=== PATIENT | female | born 1990 | race Caucasian/White ===

== ENCOUNTER 2020-03-05 23:39 | Emergency (ER) | payer MEDICAID, SELFPAY ==
[2020-03-05 23:40] VITALS: BP 133/85; RESP 18; O2SAT 97
--- NOTE | 2020-03-05 23:52 | PC.NURSE ---
PATIENT STATES SHE WAS LYING IN BED WHEN HER CHEST STARTED HURTING, PATIENT STATES THAT SHE HAD PAIN IN HER CHEST YESTERDAY AT WORK. PATIENT STATES SHE IS FEELING ANXIOUS. PATIENT IS NOT COMPLIANT WITH MONITORS BEING PLACED.
--- NOTE | 2020-03-05 23:53 | XRR_ITS ---
PROCEDURE INFORMATION: Exam: XR Chest, 1 View Exam date and time: 03/06/2020 12:18 AM Age: 29 years old Clinical indication: Chest pain; Type not specified; Additional info: Cp TECHNIQUE: Imaging protocol: XR of the chest Views: 1 view. COMPARISON: No relevant prior studies available. FINDINGS: Lungs: Unremarkable. No consolidation. Pleural space: Unremarkable. No pleural effusion. No pneumothorax. Heart/Mediastinum: Unremarkable. No cardiomegaly. Bones/joints: Unremarkable. XR/XR chest 1V portable [id number] IMPRESSION: No acute findings.
--- NOTE | 2020-03-05 23:53 | ECG_ITS ---
Measurements Intervals [place] Rate: 112 P: 57 LA: 141 QRS: 76 QRSD: 90 T: 32 QT: 339 QTc: 464 SINUS TACHYCARDIA ABNORMAL RHYTHM ECG No previous ECG available for comparison Electronically Signed On 03-06-2020 19:04:36 CDT by Jaquelin Cross M.D. [email or web address]
[2020-03-05 23:54] VITALS: BP 140/89; PULSE 106; RESP 20; O2SAT 97
--- NOTE | 2020-03-06 00:06 | ED_ITS ---
HPI - Chest Pain General: Chief Complaint: Chest Pain Stated Complaint: Chest pain Time Seen by Provider: 03/05/20 23:50 Source: patient Mode of arrival: ambulatory Limitations: no limitations History of Present Illness: HPI narrative: 29-year-old female who states she has had chest pain along with feeling like she cannot get a breath and over the last 2 hours. Patient here is very anxious and is tachypneic and tachycardic. Patient denies any worsening or improving factors. She denies any previous symptoms like this. She has had no recent trips. She denies any worsening or improving factors. Is very difficult to get a full history as she is very anxious at this time. pt admitted to methamphetamine use today to person with her. Associated symptoms: Deny abdominal pain, dyspnea, fever(s), nausea or vomiting Review of Systems Const: Denies: fever(s), chills, body aches or change in appetite Eyes: Denies: blurry vision or eye discomfort ENMT: Denies: throat pain or dental pain Card: Reports: chest pain Resp: Denies: dyspnea GI: Denies: abdominal pain, nausea, vomiting or diarrhea : Denies: dysuria Musc: Denies: neck pain or back pain Skin/Breast: Denies: rash Neuro: Denies: headache(s) Psych: Reports: anxiety Skyler/Lymph: Denies: easy bruising All/Imm: Denies: urticaria PFSH ED PFSH: Social History Smoking and tobacco status: current every day smoker Physical Exam Const: COMMON NORMALS: no acute distress, patient oriented x3 and healthy appearing GENERAL APPEARANCE: anxious HENMT: COMMON NORMALS: normocephalic and atraumatic HEAD & SCALP: normocephalic and atraumatic Eye: COMMON NORMALS: Equal, round and reactive pupils present and EOMs intact bilaterally PUPIL: Yes Equal, round and reactive pupils present Neck/C-Spine: COMMON NORMALS: full ROM and supple Chest: COMMONS NORMALS: normal inspection of the chest and normal palpation of entire chest wall Resp: COMMON NORMALS: normal respiratory effort, No retractions, No use of accessory muscles and clear to auscultation bilaterally AUSCULTATION: clear to auscultation bilaterally Cardio: COMMON NORMALS: regular rhythm and No murmurs present (Cardio) RATE: tachycardic RHYTHM: regular rhythm GI: COMMON NORMALS: Normal to inspection, nondistended, normoactive bowel sounds present, Soft to palpation, non-tender and no masses PALPATION: Yes Soft to palpation Extremity: COMMON NORMALS: normal to inspection and full ROM Neuro: COMMON NORMALS: patient oriented x3, moves all extremities and no focal motor deficits Psych: COMMON NORMALS: mental status grossly normal, Normal thought process present and cooperative THOUGHT PROCESS: Normal thought process present Skin: COMMON NORMALS: no rashes or lesions noted and no wounds GENERAL SKIN EXAM: no rashes or lesions noted Course Vital Signs: Vital signs: Vital Signs Pulse Rate 108 H 03/06/20 01:01 Respiratory Rate 18 03/06/20 01:01 Blood Pressure 140/89 03/05/20 23:54 Pulse Oximetry 98 03/06/20 01:01 MDM - Chest Pain MDM Narrative: Medical decision making narrative: Patient presents with chest pain along with anxiety likely from methamphetamine abuse. Patient's lab work including troponin and d-dimer all negative. Patient refused any IV here and refused Ativan. Patient refused staying for 2-hour troponin. She is not homicidal or suicidal and is not acutely psychotic and can make her own medical decisions. Patient discharged and is to follow-up with primary care doctor in 2 to 4 days and return if worsening. Lab Data: Labs: Lab Results 03/06/20 03/06/20 03/06/20 Range/Units 00:28 00:28 00:28 WBC 8.5 (4.0-10.0) 10^3/ uL RBC 4.46 (4.1-5.3) 10^6/u L Hgb 14.0 (11.5-15.3) g/dL Hct 42.4 (37.0-47.0) % MCV 95.1 (81-99) fL MCH 31.4 (28.0-34.0) pg MCHC 33.0 (30.0-36.0) g/dL RDW 12.8 (12.1-15.1) % Plt Count 182 (130-400) 10^3/c mm MPV 10.6 H (7.4-10.4) fL Neut % (Auto) 44.0 % Lymph % (Auto) 46.6 % [place] % (Auto) 6.4 % Eos % (Auto) 2.6 % Baso % (Auto) 0.2 % Neut # (Auto) 3.7 (1.8-7.7) 10^3/u L Lymph # (Auto) 4.0 (0.8-4.8) 10^3/u L [place] # (Auto) 0.5 (0.2-0.9) 10^3/u L Eos # (Auto) 0.2 (0.0-0.8) 10^3/u L Baso # (Auto) 0.0 (0.0-0.1) 10^3/u L Nucleated RBC % (a uto) 0 % Nucleated RBCs # 0.0 /100WBC D-Dimer <= 0.27 (0-0.59) ug/mIFE U Sodium (136-145) mmol/L Potassium (3.5-5.1) mmol/L Chloride (98-107) mmol/L Carbon Dioxide (22-29) mmol/L Anion Gap (5-19) BUN (6-20) mg/dL Creatinine (0.5-0.9) mg/dL GFR Calculation (90-130) mL/min Glucose (65-115) mg/dL Calculated Osmolal ity (285-295) mOsm/k g Calcium (8.5-10.5) mg/dL Total Bilirubin (0.15-1.2) mg/dL AST (0-32) U/L ALT (0-33) U/L Alkaline Phosphata se (35-105) IU/L Troponin T Baselin e (0-10) ng/L Total Protein (6.6-8.7) g/dL Albumin (3.5-5.2) g/dL Globulin (1.3-4.6) g/dL Urine HCG, Qual Negative (Negative) 03/06/20 03/06/20 Range/Units 00:28 00:28 WBC (4.0-10.0) 10^3/ uL RBC (4.1-5.3) 10^6/u L Hgb (11.5-15.3) g/dL Hct (37.0-47.0) % MCV (81-99) fL MCH (28.0-34.0) pg MCHC (30.0-36.0) g/dL RDW (12.1-15.1) % Plt Count (130-400) 10^3/c mm MPV (7.4-10.4) fL Neut % (Auto) % Lymph % (Auto) % [place] % (Auto) % Eos % (Auto) % Baso % (Auto) % Neut # (Auto) (1.8-7.7) 10^3/u L Lymph # (Auto) (0.8-4.8) 10^3/u L [place] # (Auto) (0.2-0.9) 10^3/u L Eos # (Auto) (0.0-0.8) 10^3/u L Baso # (Auto) (0.0-0.1) 10^3/u L Nucleated RBC % (a uto) % Nucleated RBCs # /100WBC D-Dimer (0-0.59) ug/mIFE U Sodium 140 (136-145) mmol/L Potassium 3.6 (3.5-5.1) mmol/L Chloride 105 (98-107) mmol/L Carbon Dioxide 22 (22-29) mmol/L Anion Gap 16.6 (5-19) BUN 9 (6-20) mg/dL Creatinine 0.7 (0.5-0.9) mg/dL GFR Calculation 97.6 (90-130) mL/min Glucose 103 (65-115) mg/dL Calculated Osmolal ity 286 (285-295) mOsm/k g Calcium 9.5 (8.5-10.5) mg/dL Total Bilirubin 0.2 (0.15-1.2) mg/dL AST 26 (0-32) U/L ALT 22 (0-33) U/L Alkaline Phosphata se 71 (35-105) IU/L Troponin T Baselin e 6 (0-10) ng/L Total Protein 7.2 (6.6-8.7) g/dL Albumin 4.2 (3.5-5.2) g/dL Globulin 3.0 (1.3-4.6) g/dL Urine HCG, Qual (Negative) EKG Data^: EKG 1: EKG interpretation date: 03/05/20 EKG interpretation time: 23:54 Interpretation: sinus tach hr [address] or t wave abnormalities qrs 90 qtc 405 Discharge Plan Discharge Patient Disposition: Home, Self-Care Clinical Impression: Anxious mood Chest pain Qualifiers: Chest pain type: unspecified Qualified Code(s): R07.9 - Chest pain, unspecified Condition: Stable Discharge Orders: Discharge Order (Routine); Ordered 03/06/20 Ordered By: Ajay Phelps Discharge Diet: Advance as tolerated Discharge Activity: Resume usual activity Patient Instructions: Anxiety (ED) Discharge Date/Time: 03/06/20 01:01 Coding Level of Care Code ED Dynamite Packing Machine Feeder for Brina Fwjason Exam Comprehensive
--- NOTE | 2020-03-06 00:09 | PC.NURSE ---
patient refused iv and medications from nurse, stating that she did not want anything in her . Patient stated that she felt that the ekg electrodes were full of poison .
[2020-03-06 00:35] LABS: Basophils % 0.2 %; Eosinophils # 0.2 10^3/uL (0.0-0.8); Eosinophils % 2.6 %; Hematocrit 42.4 % (37.0-47.0); Lymphocytes % 46.6 %; Mean Corpuscular Hemoglobin 31.4 pg (28.0-34.0); Mean Corpuscular Volume 95.1 fL (81-99); Mean Platelet Volume 10.6 fL (7.4-10.4); Monocytes # 0.5 10^3/uL (0.2-0.9); Monocytes % 6.4 %; Neutrophils # 3.7 10^3/uL (1.8-7.7); Nucleated Red Blood Cells % 0 %; Platelet Count 182 10^3/cmm (130-400); Red Blood Count 4.46 10^6/uL (4.1-5.3); Red Cell Distribution Width 12.8 % (12.1-15.1); White Blood Count 8.5 10^3/uL (4.0-10.0)
--- NOTE | 2020-03-06 00:38 | PC.NURSE ---
PATIENT REFUSED IV AND MEDICATIONS FROM NURSE, STATING THAT SHE DID NOT WANT ANYTHING IN HER . PATIENT STATED THAT SHE FELT THE THAT THE EKG ELECTRODES WERE FULL OF POISON .
[2020-03-06] MEDS: LORazepam 2 mg Tablet PO (00:42)
[2020-03-06 00:47] LABS: D Dimer <= 0.27 ug/mIFEU (0-0.59)
[2020-03-06 00:54] LABS: Alanine Aminotransferase 22 U/L (0-33); Albumin Level 4.2 g/dL (3.5-5.2); Alkaline Phosphatase 71 IU/L (35-105); Anion Gap 16.6 (5-19); Aspartate Amino Transferase 26 U/L (0-32); Blood Urea Nitrogen 9 mg/dL (6-20); Calcium 9.5 mg/dL (8.5-10.5); Carbon Dioxide 22 mmol/L (22-29); Chloride 105 mmol/L (98-107); Glomerular Filtration Rate 97.6 mL/min (90-130); Glucose 103 mg/dL (65-115); Osmolality Calculated 286 mOsm/kg (285-295); Potassium 3.6 mmol/L (3.5-5.1); Sodium 140 mmol/L (136-145); Total Bilirubin 0.2 mg/dL (0.15-1.2); Total Protein 7.2 g/dL (6.6-8.7); Troponin(5th) Baseline 6 ng/L (0-10)
[2020-03-06 01:01] VITALS: PULSE 108; RESP 18; O2SAT 98
--- NOTE | 2020-03-06 01:06 | PC.NURSE ---
WASTED 2MG ATIVAN PO AND WASTED 2MG ATIVAN IN SYRINGE WITH OTHER RN
== END 2020-03-06 01:01 | disposition home or self-care (01) ==
PROVIDERS: Emergency Provider Emergency Medicine
DX: R07.9 Chest pain, unspecified (principal); F41.9 Anxiety disorder, unspecified; F17.210 Nicotine dependence, cigarettes, uncomplicated
CPT/HCPCS: 12345; 71045; 80053; 81025; 84484; 85025; 85378; 93005; 99281; 99284

== ENCOUNTER 2022-03-23 14:41 | Inpatient (IN) | payer MEDICAID, SELFPAY ==
[2022-03-23 14:59] VITALS: BP 139/91; PULSE 76; RESP 16; TEMP 36.7; O2SAT 99
--- NOTE | 2022-03-23 15:06 | ED.C_ITS ---
HPI - Psych General: Chief Complaint: Psychiatric Symptoms Stated Complaint: SI Time Seen by Provider: 03/23/22 15:02 History of Present Illness: Patient is a 31-year-old female comes to the ED with SI. She has a history of depression and personality disorder. She has not been taking any of her medications for the past several months. She endorses increased thoughts of SI but denies having a plan. She is feeling more depressed over this past couple days and has low energy. She has been sleeping a lot. She also hears voices that tell her negative things about herself and ot her people. Endorses some alcohol and methamphetamine use. Last meth use was within the last week. Denies any HI or any other symptoms. Associated symptoms: Reports auditory hallucinations, depression and suicidal ideation; Deny homicidal ideation Review of Systems Const: Denies: fever(s), chills or fatigue Eyes: Denies: change in vision or eye discomfort ENMT: Denies: throat pain, odynophagia, nasal discharge or nasal congestion Card: Denies: chest pain, palpitations, edema, swelling of feet/ankles, dyspnea on exertion or orthopnea Resp: Denies: dyspnea, productive cough or non-productive cough GI: Denies: abdominal pain, nausea, vomiting, diarrhea, constipation or hematochezia : Denies: flank pain, dysuria or hematuria Musc: Denies: neck pain, back pain or extremity swelling Skin/Breast: Denies: rash or new lesions Neuro: Denies: headache(s), numbness in extremities or weakness in extremities Psych: Reports: depression, sleeping more, loss of interest, auditory halluc inations and suicidal ideation; Denies: homicidal ideation [facility] ED PFSH: Medical History No pertinent family history Surgical History No pertinent past surgical history Physical Exam Const: COMMON NORMALS: no acute distress, patient oriented x3 and alert GENERAL APPEARANCE: cooperative and comfortable HENMT: COMMON NORMALS: normocephalic HEAD & SCALP: normocephalic MOUTH: Normal oral and palatal mucosa present THROAT: posterior oropharynx normal and uvula midline Neck/C-Spine: COMMON NORMALS: supple GENERAL: Yes normal visual inspection Resp: COMMON NORMALS: normal respiratory effort, No retractions, No use of accessory muscles and clear to auscultation bilaterally AUSCULTATION: clear to auscultation bilaterally Cardio: COMMON NORMALS: regular rate, regular rhythm, S1 normal heart sound present, S2 normal heart sound present, No gallops present (Cardio), No clicks p resent (Cardio), No murmurs present (Cardio) and Peripheral pulses 2+ throughout RATE: regular rate RHYTHM: regular rhythm HEART SOUNDS: S1 normal heart sound present and S2 normal heart sound present PERIPHERAL PULSES: Peripheral pulses 2+ throughout GI: COMMON NORMALS: Normal to inspection, nondistended, normoactive bowel sounds present, Soft to palpation, non-tender and no masses PALPATION: Yes Soft to palpation : COMMON NORMALS: Yes no CVA tenderness BLADDER/KIDNEY EXAM: Yes no CVA tenderness Back/Pelvis: COMMON NORMALS: no CVA tenderness Neuro: COMMON NORMALS: patient oriented x3 and moves all extremities SENSORIUM/ORIENTATION: Yes alert Psych: COMMON NORMALS: mental status grossly normal, cooperative and speech normal ATTITUDE: Yes calm SPEECH: Yes normal speech MOOD & AFFECT: Yes sad and Yes tearful THOUGHT CONTENT: Yes Suicidality present Skin: GENERAL SKIN EXAM: dry skin Course Reevaluation(s): Reevaluation #1: I contacted Dr. Fuller and told him about patient case. He agreed to have patient admitted to the NPU. Vital Signs: Vital signs: Vital Signs Temperature 98.3 F 03/23/22 17:26 Pulse Rate 98 03/23/22 20:15 Respiratory Rate 16 03/23/22 20:15 Blood Pressure 135/92 03/23/22 20:15 Pulse Oximetry 96 03/23/22 20:15 [facility] - Psych Medical Decision Making Patient is a 31-year-old female comes to the ED with SI. Patient wants to get help. She admits to recent meth use within the last week. Prescreening labs performed patient did test positive for methamphetamine the rest the labs are unremarkable. I contacted Dr. Fuller and told him about patient case. He agreed patient to be admitted to the NPU. Dr. Mars was notified and he placed the admitting orders Lab Data I reviewed the patient's lab results. : 03/23/22 16:02 03/23/22 16:02 Laboratory Results WBC 10.0 10^3/uL (4.0-10.0) 03/23/22 16:02 RBC 4.82 10^6/uL (4.1-5.3) 03/23/22 16:02 Hgb 15.1 g/dL (11.5-15.3) 03/23/22 16:02 Hct 43.5 % (37.0-47.0) 03/23/22 16:02 MCV 90.2 fl (81-99) 03/23/22 16:02 MCH 31.3 pg (28.0-34.0) 03/23/22 16:02 MCHC 34.7 g/dL (30.0-36.0) 03/23/22 16:02 RDW 12.6 % (12.1-15.1) 03/23/22 16:02 Plt Count 218 10^3/cmm (130-400) 03/23/22 16:02 MPV 10.8 fL (7.4-10.4) H 03/23/22 16:02 Neut % (Auto) 59.7 % 03/23/22 16:02 Lymph % (Auto) 31.9 % 03/23/22 16:02 Kinney % (Auto) 6.9 % 03/23/22 16:02 Eos % (Auto) 0.7 % 03/23/22 16:02 Baso % (Auto) 0.2 % 03/23/22 16:02 Neut # (Auto) 5.98 10^3/uL (1.8-7.7) 03/23/22 16:02 Lymph # (Auto) 3.2 10^3/uL (0.8-4.8) 03/23/22 16:02 Kinney # (Auto) 0.7 10^3/uL (0.2-0.9) 03/23/22 16:02 Eos # (Auto) 0.1 10^3/uL (0.0-0.8) 03/23/22 16:02 Baso # (Auto) 0.0 10^3/uL (0.0-0.1) 03/23/22 16:02 Nucleated RBC % (auto) 0 % 03/23/22 16:02 Nucleated RBCs # 0.0 /100WBC 03/23/22 16:02 Sodium 140 mmol/L (136-145) 03/23/22 16:02 Potassium 3.8 mmol/L (3.5-5.1) 03/23/22 16:02 Chloride 102 mmol/L (98-107) 03/23/22 16:02 Carbon Dioxide 23 mmol/L (22-29) 03/23/22 16:02 Anion Gap 18.8 (5-19) 03/23/22 16:02 BUN 11 mg/dL (6-20) 03/23/22 16:02 Creatinine 0.6 mg/dL (0.5-0.9) 03/23/22 16:02 GFR Calculation 115.1 mL/min (90-130) 03/23/22 16:02 Glucose 84 mg/dL (65-115) 03/23/22 16:02 Calculated Osmolality 289 mOsm/kg (285-295) 03/23/22 16:02 Calcium 8.9 mg/dL (8.5-10.5) 03/23/22 16:02 Total Bilirubin 0.5 mg/dL (0.15-1.2) 03/23/22 16:02 AST 45 U/L (0-32) H 03/23/22 16:02 ALT 68 U/L (0-33) H 03/23/22 16:02 Alkaline Phosphatase 74 IU/L (35-105) 03/23/22 16:02 Total Protein 7.2 g/dL (6.6-8.7) 03/23/22 16:02 Albumin 4.2 g/dL (3.5-5.2) 03/23/22 16:02 Globulin 3.0 g/dL (1.3-4.6) 03/23/22 16:02 HCG, Qual Negative (Negative) 03/23/22 16:02 Urine Color Yellow (Yellow) 03/23/22 15:07 Urine Appearance Clear (CLEAR) 03/23/22 15:07 Urine pH 7 (5-7) 03/23/22 15:07 Ur Specific [place] 1.005 (1.005-1.030) 03/23/22 15:07 Urine Protein Neg (Negative) 03/23/22 15:07 Urine Glucose (UA) Norm (Normal) 03/23/22 15:07 Urine Ketones Negative (Negative) 03/23/22 15:07 Urine Blood 2+ (Negative) H 03/23/22 15:07 Urine Nitrate Negative (Negative) 03/23/22 15:07 Urine Bilirubin Neg (Negative) 03/23/22 15:07 Urine Urobilinogen Norm mg/dL (Negative) 03/23/22 15:07 Ur Leukocyte Esterase Negative (Negative) 03/23/22 15:07 Urine RBC 0-4 /hpf (0-2) H 03/23/22 15:07 Urine WBC 0-4 /hpf (0-5) H 03/23/22 15:07 Ur Squamous Epith Cells 0-4 /hpf (0-5) H 03/23/22 15:07 Amorphous Sediment Not Reportable 03/23/22 15:07 Urine Bacteria Trace /hpf (NONE) 03/23/22 15:07 Salicylates < 0.3 mg/dL (3-10) L 03/23/22 16:02 Urine Opiates Screen Negative ng/mL (Negative) 03/23/22 15:07 Acetaminophen < 5.0 ug/mL (10-30) L 03/23/22 16:02 Ur Barbiturates Screen Negative ng/mL (Negative) 03/23/22 15:07 Ur Phencyclidine Scrn Negative ng/mL (Negative) 03/23/22 15:07 Ur Amphetamines Screen Positive ng/mL (Negative) H 03/23/22 15:07 U Benzodiazepines Scrn Negative ng/mL (Negative) 03/23/22 15:07 Urine Cocaine Screen Negative ng/mL (Negative) 03/23/22 15:07 U Marijuana (THC) Screen Negative ng/mL (Negative) 03/23/22 15:07 Ethyl Alcohol < 10 mg/dL (0-10) 03/23/22 16:02 Discharge Plan Discharge Patient Disposition: Admitted As Inpatient Admit Provider: Yuri Fuller Clinical Impression: Suicidal ideation Condition: Stable Coding Level of Care Code ED Performance Architect for Chg Fwd Exam Comprehensive
[2022-03-23 15:56] LABS: Amphetamines Screen Urine Positive (Negative); Barbiturates Screen Urine Negative (Negative); Benzodiazepines Screen Urine Negative (Negative); Cocaine Screen Urine Negative (Negative); Opiate Screen Urine Negative (Negative); PCP Screen Urine Negative (Negative); THC Screen Urine Negative (Negative)
[2022-03-23 16:18] LABS: Add Urine Microscopic? YES; Bilirubin Urine Neg (Negative); Blood Urine 2+ (Negative); Glucose Urine UA Norm (Normal); Ketones Urine Negative (Negative); Leukocyte Esterase Urine Negative (Negative); Nitrate Urine Negative (Negative); Protein Urine Neg (Negative); Specific Gravity, Urine 1.005 (1.005-1.030); Urine Appearance Clear (CLEAR); Urine Color Yellow (Yellow); Urobilinogen Urine Norm (Negative); pH Urine 7 (5-7)
[2022-03-23 16:19] LABS: Add Urine Culture? No; RBC Urine 0-4 /hpf (0-2); Squamous Epithelial Cell Urine 0-4 /hpf (0-5); WBC Urine 0-4 /hpf (0-5)
[2022-03-23 16:20] LABS: Bacteria Urine TRACE /hpf
[2022-03-23] MEDS: LORazepam 1 mg Tablet PO (16:20)
[2022-03-23 16:26] LABS: Basophils % 0.2 %; Eosinophils # 0.1 10^3/uL (0.0-0.8); Eosinophils % 0.7 %; Hematocrit 43.5 % (37.0-47.0); Hemoglobin 15.1 g/dL (11.5-15.3); Lymphocytes # 3.2 10^3/uL (0.8-4.8); Lymphocytes % 31.9 %; Mean Corpuscular HGB Conc 34.7 g/dL (30.0-36.0); Mean Corpuscular Hemoglobin 31.3 pg (28.0-34.0); Mean Corpuscular Volume 90.2 fl (81-99); Mean Platelet Volume 10.8 fL (7.4-10.4); Monocytes # 0.7 10^3/uL (0.2-0.9); Monocytes % 6.9 %; Neutrophils # 5.98 10^3/uL (1.8-7.7); Neutrophils % 59.7 %; Nucleated Red Blood Cells % 0 %; Platelet Count 218 10^3/cmm (130-400); Red Blood Count 4.82 10^6/uL (4.1-5.3); Red Cell Distribution Width 12.6 % (12.1-15.1)
[2022-03-23 16:45] LABS: Alanine Aminotransferase 68 U/L (0-33); Albumin Level 4.2 g/dL (3.5-5.2); Alkaline Phosphatase 74 IU/L (35-105); Anion Gap 18.8 (5-19); Aspartate Amino Transferase 45 U/L (0-32); Blood Urea Nitrogen 11 mg/dL (6-20); Calcium 8.9 mg/dL (8.5-10.5); Carbon Dioxide 23 mmol/L (22-29); Chloride 102 mmol/L (98-107); Glomerular Filtration Rate 115.1 mL/min (90-130); Glucose 84 mg/dL (65-115); Osmolality Calculated 289 mOsm/kg (285-295); Potassium 3.8 mmol/L (3.5-5.1); Sodium 140 mmol/L (136-145); Total Bilirubin 0.5 mg/dL (0.15-1.2); Total Protein 7.2 g/dL (6.6-8.7)
[2022-03-23 16:46] LABS: Acetaminophen < 5.0 ug/mL (10-30); Alcohol Level < 10 mg/dL (0-10); Salicylate < 0.3 mg/dL (3-10)
[2022-03-23 16:59] LABS: HCG, Serum Qual Negative (Negative)
[2022-03-23 17:26] VITALS: BP 127/90; PULSE 92; RESP 18; TEMP 36.8; O2SAT 95
[2022-03-23 20:15] VITALS: BP 135/92; PULSE 98; RESP 16; O2SAT 96
[2022-03-23] MEDS: hyDROXYzine 25 mg Capsule 50 MG PO (20:34)
[2022-03-23] MEDS: OLANZapine 5 mg ODT PO (20:34)
--- NOTE | 2022-03-23 20:35 | PC.NURSE ---
Patient C/O A/H, V/H and increasing paranoia. Zyprexa Zydus 5mg PO given.
[2022-03-24 06:00] VITALS: BP 112/72; PULSE 64; RESP 15; O2SAT 97
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
[2022-03-24] MEDS: acetaminophen 325 mg Tablet 650 MG PO (11:38)
[2022-03-24 14:00] VITALS: BP 100/67; PULSE 74; RESP 16; TEMP 36.7; O2SAT 97
[2022-03-24] MEDS: OLANZapine 5 mg ODT PO (15:23)
[2022-03-24 20:12] VITALS: BP 132/80; PULSE 82; RESP 16; TEMP 36.6; O2SAT 97
[2022-03-25 06:00] VITALS: BP 111/61; PULSE 76; RESP 16; TEMP 36.4; O2SAT 97
--- NOTE | 2022-03-25 07:36 | P.NPUPN_ITS ---
Subjective NPU Subjective: Patient presents today continuing to be somewhat frustrated in her withdrawal. Still working with resources to figure out what her medications were because she wants to stick with things that worked. Otherwise she mostly isolated and saying to her self still. We discussed working with the treatment team in the morning to figure out what her next plan is. Mental Status Exam MSE Comments: This is an obese white female in hospital scrubs with limited grooming and eye contact. No abnormal movements except fro psychomotor retardation. Cooperative with exam in mild distress. Speech was slightly decreased rate and volume. Mood described as okay, affect is irritable. Thought process, organized. Thought content: patient denies any suicidal or homicidal ideation, reports a decrease in paranoia and no delusions noted, reports auditory hallucinations but denies visual hallucinations. Attention and concentration are intact and memory appeared reliable but none were formally tested. She is alert and oriented three times. Insight and judgment are fair. Impulse control is fair versus limited. Vitals/I&O/Wt Last Vital Signs Temp 97.6 F 03/25/22 06:00 Pulse 76 03/25/22 06:00 Resp 16 03/25/22 06:00 BP 111/61 03/25/22 06:00 Pulse Ox 97 03/25/22 06:00 Weight last 48 hrs Weight 104.054 kg Weight 95.254 kg Data NPU : 03/23/22 16:02 03/23/22 16:02 A&P Assessment and plan (1) Cluster B personality disorder in adult: Status: Acute (2) Major depressive disorder, recurrent: Status: Acute (3) Methamphetamine use disorder, severe: Status: Acute (4) Suicidal ideation: Status: Acute Plan This is a 31 year old white female with a history of trauma and genetic loading for mental health, addiction and lethality issues who presents with recent mental health challenges due to life stressors and having run out of her medications, open to restarting her medications. Restart current medications once collateral information has been obtained for the pharmacy. Encourage individual, group and milieu therapy Continue q-15 minute check for safety Recommend sober living treatment at the highest level of care to which the patient is willing to commit. Involuntary Hold Information 96 Hour Hold: 96 Hour Involuntary Admission: No Attestations NPU Medical Necessity Statement*: Inpatient hospitalization is medically necessary and the clinically appropriate intervention at this time. We will monitor medications and make changes as indicated. Likely length of stay is 2-4 days. 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
[2022-03-25 13:53] VITALS: BP 111/74; PULSE 84; RESP 17; TEMP 36.6; O2SAT 98
[2022-03-25] MEDS: OLANZapine 5 mg ODT PO ×2 (15:56→21:58)
[2022-03-25] MEDS: trazodone 50 mg Tablet PO (21:58)
[2022-03-25 21:59] VITALS: BP 113/79; PULSE 80; RESP 19; TEMP 36.7; O2SAT 97
[2022-03-25] MEDS: nicotine 2 mg Gum BUCCAL (21:59)
[2022-03-26 06:00] VITALS: BP 117/75; PULSE 18; RESP 117; O2SAT 97
[2022-03-26 14:00] VITALS: BP 116/79; PULSE 96; RESP 20; TEMP 36.7; O2SAT 96
[2022-03-26] MEDS: acetaminophen 325 mg Tablet 650 MG PO (15:41)
[2022-03-26] MEDS: OLANZapine 5 mg ODT PO ×2 (15:41→20:48)
[2022-03-26] MEDS: nicotine 2 mg Gum BUCCAL (16:04)
--- NOTE | 2022-03-26 18:30 | W.PM.NPUPNS ---
Subjective NPU Subjective: Patient presents today reporting that she is doing okay. She appears a little less irritable but not much. She was advised when it was identified that she had not been to [facility] for at least 8 months and the things that she got had nothing to do with her mental health. She still is resistant to just trying something that is being recommended and nursing has been trying to get information from [facility] from her reportedly recent stay. She reports that she is eating okay and sleeping a little better. Mental Status Exam MSE Comments: This is an obese white female in hospital scrubs with limited grooming and eye contact. No abnormal movements except fro psychomotor retardation. Cooperative with exam in mild distress. Speech was slightly decreased rate and volume. Mood described as okay, affect is less irritable. Thought process, organized. Thought content: patient denies any suicidal or homicidal ideation, reports a decrease in paranoia and no delusions noted, reports auditory hallucinations but denies visual hallucinations. Attention and concentration are intact and memory appeared reliable but none were formally tested. She is alert and oriented three times. Insight and judgment are fair. Impulse control is fair versus limited. Vitals/I&O/Wt Last Vital Signs Temp 98.2 F 03/26/22 21:30 Pulse 86 03/26/22 21:30 Resp 17 03/26/22 21:30 BP 103/71 03/26/22 21:30 Pulse Ox 97 03/26/22 21:30 Weight last 48 hrs Weight 104.054 kg Data NPU : 03/23/22 16:02 03/23/22 16:02 A&P Assessment and plan (1) Cluster B personality disorder in adult: Status: Acute (2) Major depressive disorder, recurrent: Status: Acute (3) Methamphetamine use disorder, severe: Status: Acute (4) Suicidal ideation: Status: Acute Plan This is a 31 year old white female with a history of trauma and genetic loading for mental health, addiction and lethality issues who presents with recent mental health challenges due to life stressors and having run out of her medications, open to restarting her medications. Restart current medications once collateral information has been obtained for the pharmacy. Encourage individual, group and milieu therapy Continue q-15 minute check for safety Recommend sober living treatment at the highest level of care to which the patient is willing to commit. Involuntary Hold Information 96 Hour Hold: 96 Hour Involuntary Admission: No Attestations NPU Medical Necessity Statement*: Inpatient hospitalization is medically necessary and the clinically appropriate intervention at this time. We will monitor medications and make changes as indicated.? Likely length of stay is 1-3 days. 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
[2022-03-26] MEDS: trazodone 50 mg Tablet PO (20:48)
[2022-03-26 21:30] VITALS: BP 103/71; PULSE 86; RESP 17; TEMP 36.8; O2SAT 97
[2022-03-27 06:00] VITALS: BP 91/63; PULSE 58; RESP 17; TEMP 36.6; O2SAT 96
[2022-03-27 14:00] VITALS: BP 112/77; PULSE 93; RESP 17; TEMP 36.6; O2SAT 96
[2022-03-27] MEDS: acetaminophen 325 mg Tablet 650 MG PO (14:17)
[2022-03-27] MEDS: nicotine 2 mg Gum BUCCAL ×3 (17:21→21:03)
--- NOTE | 2022-03-27 17:52 | W.PM.NPUPNS ---
Subjective NPU Subjective: Patient presents today continuing to report that she is depressed and that not much is changed. After an extensive review of medication as best we could understand we discussed the risk-benefit and alternatives of initiating Abilify 10 mg p.o. daily and Zoloft 50 mg p.o. every morning and she understood agreed proceed as is documented in his note. She is working with the social work team to determine possible options. She also was asking about being connected with a Suboxone program possibly given her significant difficulty with cravings for opiates as well as discussing the possibility of being discharged to a senior living given her limited resources. Mental Status Exam MSE Comments: This is an obese white female in hospital scrubs with limited grooming and eye contact. No abnormal movements except fro psychomotor retardation. Cooperative with exam in mild distress. Speech was slightly decreased rate and volume. Mood described as still depressed, affect is slightly less irritable. Thought process, organized. Thought content: patient denies any suicidal or homicidal ideation, reports a decrease in paranoia and no delusions noted, reports auditory hallucinations but denies visual hallucinations. Attention and concentration are intact and memory appeared reliable but none were formally tested. She is alert and oriented three times. Insight and judgment are fair. Impulse control is fair versus limited. Vitals/I&O/Wt Last Vital Signs Temp 98.5 F 03/27/22 20:24 Pulse 89 03/27/22 20:24 Resp 16 03/27/22 20:24 BP 128/86 03/27/22 20:24 Pulse Ox 97 03/27/22 20:24 Data NPU : 03/23/22 16:02 03/23/22 16:02 A&P Assessment and plan (1) Cluster B personality disorder in adult: Status: Acute (2) Major depressive disorder, recurrent: Status: Acute (3) Methamphetamine use disorder, severe: Status: Acute (4) Suicidal ideation: Status: Acute Plan This is a 31 year old white female with a history of trauma and genetic loading for mental health, addiction and lethality issues who presents with recent mental health challenges due to life stressors and having run out of her medications, open to restarting her medications. 1. Start Zoloft 50 mg p.o. every morning and Abilify 10 mg p.o. every morning. 2. Encourage individual, group and milieu therapy 3. Continue q-15 minute check for safety 4. Recommend sober living treatment at the highest level of care to which the patient is willing to commit. Involuntary Hold Information 96 Hour Hold: 96 Hour Involuntary Admission: No Attestations NPU Medical Necessity Statement*: Inpatient hospitalization is medically necessary and the clinically appropriate intervention at this time. We will monitor medications and make changes as indicated.? Likely length of stay is 1-3 days. 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
[2022-03-27] MEDS: hyDROXYzine 25 mg Capsule 50 MG PO (19:01)
--- NOTE | 2022-03-27 19:01 | PC.NURSE ---
PRN VISTARIL 50 MG GIVEN PO PER PT C/O STATED ANXIETY
[2022-03-27] MEDS: sertraline 50 mg Tablet PO (19:36)
[2022-03-27] MEDS: ARIPiprazole 10 mg Tablet PO (19:36)
[2022-03-27 20:24] VITALS: BP 128/86; PULSE 89; RESP 16; TEMP 36.9; O2SAT 97
[2022-03-27] MEDS: OLANZapine 5 mg ODT PO (21:02)
[2022-03-27] MEDS: trazodone 50 mg Tablet PO (21:03)
[2022-03-28 06:00] VITALS: BP 108/75; PULSE 75; RESP 16; TEMP 36.6; O2SAT 95
--- NOTE | 2022-03-28 08:43 | PC.NURSE ---
IN ROOM RESTING, APPEARS DISHOVELED WITH FLAT AFFECT. HESITANT TO PARTICIPATE WITH ASSESSMENT. PT IS GUARDED AND VOICES INCREASED DEPRESSION. DENIES PAIN. DENIES SI/HI9 AND VH AT THIS TIME. DOES ENDORSE HEARING VOICES PT STATES THEY TELL HER NEGATIVE THINGS ABOUT THE PEOPLE AROUND ME. STATES, THEY DON'T TELL ME TO HURT MYSELF SO DON'T WORRY ABOUT IT. PT STATES SHE DID NOT SLEEP WELL AND APPEARS ANXIOUS AT TIMES. DECLINES PRN MEDICATIONS, STATES, I WAS STARTED ON SOMETHING YESTERDAY, I WILL JUST TAKE THAT. PT ROLLED OVER AND WENT BACK TO RESTING IN BED WITH EYES CLOSED. SUPPORT VOICED.
[2022-03-28] MEDS: ARIPiprazole 10 mg Tablet PO (09:34)
[2022-03-28] MEDS: sertraline 50 mg Tablet PO (09:34)
[2022-03-28 14:00] VITALS: BP 116/61; PULSE 71; RESP 16; TEMP 36.5; O2SAT 96
--- NOTE | 2022-03-28 17:13 | W.PM.NPUPNS ---
Subjective NPU Subjective: Patient presents today reporting that she is tolerating the Abilify and Zoloft at this point. She is somewhat concerned about what the next step in this process is as she feels very desirous to move things forward. And have her recovery be successful. She is working with the treatment team on possible aftercare opportunities. He reports he is eating fine and sleeping a little better. Mental Status Exam MSE Comments: This is an obese white female in hospital scrubs with limited grooming and eye contact. No abnormal movements except fro psychomotor retardation. Cooperative with exam in mild distress. Speech was slightly decreased rate and volume. Mood described as still depressed, affect is slightly less irritable. Thought process, organized. Thought content: patient denies any suicidal or homicidal ideation, reports a decrease in paranoia and no delusions noted, reports auditory hallucinations but denies visual hallucinations. Attention and concentration are intact and memory appeared reliable but none were formally tested. She is alert and oriented three times. Insight and judgment are fair. Impulse control is fair versus limited. Vitals/I&O/Wt Last Vital Signs Temp 97.7 F 03/28/22 14:00 Pulse 71 03/28/22 14:00 Resp 16 03/28/22 14:00 BP 116/61 03/28/22 14:00 Pulse Ox 96 03/28/22 14:00 Data NPU : 03/23/22 16:02 03/23/22 16:02 A&P Assessment and plan (1) Cluster B personality disorder in adult: Status: Acute (2) Major depressive disorder, recurrent: Status: Acute (3) Methamphetamine use disorder, severe: Status: Acute (4) Suicidal ideation: Status: Acute Plan This is a 31 year old white female with a history of trauma and genetic loading for mental health, addiction and lethality issues who presents with recent mental health challenges due to life stressors and having run out of her medications, open to restarting her medications. 1.? Started Zoloft 50 mg p.o. every morning and Abilify 10 mg p.o. every morning. 2.? Encourage individual, group and milieu therapy 3.? Continue q-15 minute check for safety 4.? Recommend sober living treatment at the highest level of care to which the patient is willing to commit. Involuntary Hold Information 96 Hour Hold: 96 Hour Involuntary Admission: No Attestations NPU Medical Necessity Statement*: Inpatient hospitalization is medically necessary and the clinically appropriate intervention at this time. We will monitor medications and make changes as indicated.? Likely length of stay is 1-3 days. 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
[2022-03-28] MEDS: nicotine 2 mg Gum BUCCAL (19:55)
[2022-03-28 20:06] VITALS: BP 122/83; PULSE 73; RESP 17; TEMP 36.7; O2SAT 95
[2022-03-28] MEDS: hyDROXYzine 25 mg Capsule 50 MG PO (20:20)
[2022-03-28] MEDS: trazodone 50 mg Tablet PO (20:20)
--- NOTE | 2022-03-28 21:49 | PC.NURSE ---
PRN PT REQUESTED MEDICATION TO HELP WITH ANXIETY AND TO HELP HER SLEEP. TRAZADONE AND HYDROXYZINE WERE GIVEN.
[2022-03-29 06:00] VITALS: PULSE 82; RESP 18; TEMP 36.8; O2SAT 98
[2022-03-29] MEDS: ARIPiprazole 10 mg Tablet PO (08:41)
[2022-03-29] MEDS: nicotine 2 mg Gum BUCCAL (08:41)
[2022-03-29] MEDS: sertraline 50 mg Tablet PO (08:42)
--- NOTE | 2022-03-29 08:58 | PC.NURSE ---
PT CONTINUES TO REST IN BED, TEARFUL AND SAD. DENIES SI/HI AND VH AT THIS TIME. DOES ENDORSE HEARING VOICES THAT ARE NEGATIVE IN NATURE, TELLING PT NEGATIVE THINGS ABOUT OTHERS. WAS CONTRACTED FOR SAFETY AND STATES SHE WILL NOTIFY STAFF IF THOUGHTS WORSEN. REPORTS SHE DID NOT SLEEP WELL LAST NIGHT. PT DID SLEEP MOST OF THE DYA YESTERDAY. SUPPORT VOICED.
[2022-03-29] MEDS: acetaminophen 325 mg Tablet 650 MG PO (13:49)
[2022-03-29 14:00] VITALS: BP 110/73; PULSE 89; RESP 16; TEMP 36.1; O2SAT 97
--- NOTE | 2022-03-29 15:13 | W.PM.NPUPNS ---
Subjective NPU Subjective: Patient is today reporting doing a little better. She can the medication seems to be taking the edge off. She is working with the social work team on options at this point it appears that [facility] going [facility] bed for her tomorrow. She reports that if that is the case she feels she may be ready to go there and possibly go to [facility] and start working on her recovery. Mental Status Exam MSE Comments: This is an obese white female in hospital scrubs with improving grooming and eye contact. No abnormal movements except for mild psychomotor retardation. Cooperative with exam in no acute distress. Speech was slightly decreased rate and volume. Mood described as still a little better, affect is less irritable. Thought process, organized. Thought content: patient denies any suicidal or homicidal ideation, reports a decrease in paranoia and no delusions noted, reports auditory hallucinations but denies visual hallucinations. Attention and concentration are intact and memory appeared reliable but none were formally tested. She is alert and oriented three times. Insight and judgment are fair. Impulse control is improving. Vitals/I&O/Wt Last Vital Signs Temp 97.0 F L 03/29/22 14:00 Pulse 89 03/29/22 14:00 Resp 16 03/29/22 14:00 BP 110/73 03/29/22 14:00 Pulse Ox 97 03/29/22 14:00 Data NPU : 03/23/22 16:02 03/23/22 16:02 A&P Assessment and plan (1) Cluster B personality disorder in adult: Status: Acute (2) Major depressive disorder, recurrent: Status: Acute (3) Methamphetamine use disorder, severe: Status: Acute (4) Suicidal ideation: Status: Acute Plan This is a 31 year old white female with a history of trauma and genetic loading for mental health, addiction and lethality issues who presents with recent mental health challenges due to life stressors and having run out of her medications, open to restarting her medications. 1.? Started Zoloft 50 mg p.o. every morning and Abilify 10 mg p.o. every morning. 2.? Encourage individual, group and milieu therapy 3.? Continue q-15 minute check for safety 4.? Recommend sober living treatment at the highest level of care to which the patient is willing to commit. 5. Possible discharge tomorrow. Involuntary Hold Information 96 Hour Hold: 96 Hour Involuntary Admission: No Attestations NPU Medical Necessity Statement*: Inpatient hospitalization is medically necessary and the clinically appropriate intervention at this time. We will monitor medications and make changes as indicated.? Likely length of stay is 1-2 days. Coding Level of Care Code Acute Animal Hospital Clerk for [facility] Fwd Diagnoses Cluster B personality disorder in adult F60.9 Major depressive disorder, recurrent F33.9 Methamphetamine use disorder, severe F15.20 Suicidal ideation R45.855
[2022-03-29] MEDS: nicotine 21 mg Patch 1 PATCH TRANSDERMA (16:14)
[2022-03-29 20:18] VITALS: BP 131/85; PULSE 87; RESP 20; TEMP 36.6; O2SAT 96
[2022-03-29] MEDS: trazodone 50 mg Tablet PO (20:22)
[2022-03-29] MEDS: hyDROXYzine 25 mg Capsule 50 MG PO (20:22)
--- NOTE | 2022-03-29 20:55 | PC.NURSE ---
PRN PT REQUESTED MEDICATION TO HELP HER SLEEP AND FOR ANXIETY/AUDITORY HALLUCINATIONS. PT WAS GIVEN VISTERIL AND TRAZADONE. PT IS UP IN THE DAY ROOM.
[2022-03-29] MEDS: OLANZapine 5 mg ODT PO (22:23)
--- NOTE | 2022-03-29 22:23 | PC.NURSE ---
PRN PT RETURNED TO NURSES STATION WITH COMPLAINTS OF AH AND ANXIETY. OLANZAPINE WAS GIVEN. PT NOW UP IN THE DAY ROOM
[2022-03-30 06:00] VITALS: BP 99/69; PULSE 78; RESP 20; TEMP 36.6; O2SAT 96
[2022-03-30] MEDS: haloperidol 5 mg Tablet PO ×2 (08:26→20:07)
[2022-03-30] MEDS: sertraline 50 mg Tablet PO (08:26)
[2022-03-30] MEDS: ARIPiprazole 10 mg Tablet PO (08:26)
--- NOTE | 2022-03-30 08:58 | PC.NURSE ---
IN ROOM PACING, ANXIETY OBSERVED. PT DENIES PAIN. PT DENIES SI/HI AND VH AT THIS TIME. ENDORSES AUDITORY HALLUCINATIONS THAT ARE 'TELLING ME BAD THINGS THEN POSITIVE THINGS. SOMETIMES I KOW THE PEOPLE SOMETIMES I DON'T. NOTIFIED MED NURSE TO GIVE AM MEDS AND HALDOL FOR VOICES. EDUCATED PT THAT IF VOICES GET WORSE TO LET STAFF KNOW SO FURTHE INTERVENTIONS CAN BE GIVEN. SUPPORT VOICED.
--- NOTE | 2022-03-30 12:34 | W.PM.NPUPNS ---
Subjective NPU Subjective: Patient presents today reporting that she is having a very rough day. She reports that voices were worse this morning and last night. We discussed the risk-benefit and alternatives of increasing Zoloft to 100 mg p.o. every morning and Abilify to 15 mg p.o. every morning and she understood agreed proceed as is documented in this note. We discussed the limitations for discharge over this weekend and the change manager to Dr. Ott. Mental Status Exam MSE Comments: This is an obese white female in hospital scrubs with improving grooming and eye contact. No abnormal movements except for mild psychomotor retardation. Cooperative with exam in no acute distress. Speech was slightly decreased rate and volume. Mood described as feeling overwhelmed, affect is congruent. Thought process, organized. Thought content: patient denies any suicidal or homicidal ideation, reports continued paranoia and no delusions noted, reports auditory hallucinations but denies visual hallucinations. Attention and concentration are intact and memory appeared reliable but none were formally tested. She is alert and oriented three times. Insight and judgment are fair. Impulse control is improving. Vitals/I&O/Wt Last Vital Signs Temp 98 F 03/30/22 06:00 Pulse 78 03/30/22 06:00 Resp 20 H 03/30/22 06:00 BP 99/69 03/30/22 06:00 Pulse Ox 96 03/30/22 06:00 Data NPU : 03/23/22 16:02 03/23/22 16:02 A&P Assessment and plan (1) Suicidal ideation: Status: Acute (2) Methamphetamine use disorder, severe: Status: Acute (3) Major depressive disorder, recurrent: Status: Acute (4) Cluster B personality disorder in adult: Status: Acute Plan This is a 31 year old white female with a history of trauma and genetic loading for mental health, addiction and lethality issues who presents with recent mental health challenges due to life stressors and having run out of her medications, open to restarting her medications. 1.? Continue current medication except increase Zoloft to 100 mg p.o. every morning and Abilify to 15 mg p.o. every morning. 2.? Encourage individual, group and milieu therapy 3.? Continue q-15 minute check for safety 4.? Recommend sober living treatment at the highest level of care to which the patient is willing to commit. 5.? Plan for discharge Saturday. 6. Evaluate for possible malingering if there is resistant to discharge at the beginning of the week. Involuntary Hold Information 96 Hour Hold: 96 Hour Involuntary Admission: No Attestations NPU Medical Necessity Statement*: Inpatient hospitalization is medically necessary and the clinically appropriate intervention at this time. We will monitor medications and make changes as indicated.? Likely length of stay is 2-4 days. 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
[2022-03-30 13:42] VITALS: BP 105/72; PULSE 92; RESP 15; TEMP 36.9; O2SAT 95
[2022-03-30] MEDS: OLANZapine 5 mg ODT PO (18:46)
--- NOTE | 2022-03-30 18:49 | PC.NURSE ---
PRN MEDICATION PT CONTINUES TO C/O VOICES AND ANXIETY. ZYDIS 5 MG GIVEN ORDERED.
[2022-03-30 19:49] VITALS: BP 110/72; PULSE 78; RESP 18; TEMP 36.6; O2SAT 95
[2022-03-30] MEDS: trazodone 50 mg Tablet PO (20:07)
[2022-03-31 06:00] VITALS: BP 98/69; PULSE 75; RESP 17; TEMP 36.6; O2SAT 97
--- NOTE | 2022-03-31 08:16 | W.PM.NPUPNS ---
Subjective NPU Subjective: Patient presents today reporting that she is doing okay. She is tolerating the increases in the medication without incident. We discussed hoping that she would have steady improvement over the weekend and that [facility] has a bed available on Saturday when they are back in business. We discussed the fact that Dr. Ott would start managing her care and that I will be back with she should be long discharged by then. She endorsed that she is eating fine and sleeping okay. Mental Status Exam MSE Comments: This is an obese versus morbidly obese white female in hospital scrubs with improving grooming and eye contact. No abnormal movements except for mild psychomotor retardation. Cooperative with exam in no acute distress. Speech was slightly decreased rate and volume. Mood described as feeling a little better,? affect is congruent. Thought process, organized. Thought content: patient denies any suicidal or homicidal ideation, reports continued paranoia and no delusions noted, reports auditory hallucinations but denies visual hallucinations. Attention and concentration are intact and memory appeared reliable but none were formally tested. She is alert and oriented to person place and time. ? Insight and judgment are fair. Impulse control was limited.? Vitals/I&O/Wt Last Vital Signs Temp 97.8 F 03/31/22 06:00 Pulse 75 03/31/22 06:00 Resp 17 03/31/22 06:00 BP 98/69 03/31/22 06:00 Pulse Ox 97 03/31/22 06:00 Weight last 48 hrs Weight 102.149 kg Weight 102.149 kg Data NPU : 03/23/22 16:02 03/23/22 16:02 A&P Assessment and plan (1) Suicidal ideation: Status: Acute (2) Methamphetamine use disorder, severe: Status: Acute (3) Major depressive disorder, recurrent: Status: Acute (4) Cluster B personality disorder in adult: Status: Acute Plan This is a 31 year old white female with a history of trauma and genetic loading for mental health, addiction and lethality issues who presents with recent mental health challenges due to life stressors and having run out of her medications, open to restarting her medications. 1.? Continue current medication except increased Zoloft to 100 mg p.o. every morning and Abilify to 15 mg p.o. every morning. 2.? Encourage individual, group and milieu therapy 3.? Continue q-15 minute check for safety 4.? Recommend sober living treatment at the highest level of care to which the patient is willing to commit. 5.? Plan for discharge Saturday. 6.? Evaluate for possible malingering if there is resistant to discharge at the beginning of the week. Involuntary Hold Information 96 Hour Hold: 96 Hour Involuntary Admission: No Attestations NPU Medical Necessity Statement*: Inpatient hospitalization is medically necessary and the clinically appropriate intervention at this time. We will monitor medications and make changes as indicated.? Likely length of stay is 2-4 days. 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
[2022-03-31] MEDS: nicotine 21 mg Patch 1 PATCH TRANSDERMA (08:40)
[2022-03-31] MEDS: ARIPiprazole 10 mg Tablet 15 MG PO (11:28)
[2022-03-31] MEDS: sertraline 50 mg Tablet 100 MG PO (11:29)
[2022-03-31 14:00] VITALS: BP 119/84; PULSE 81; RESP 18; TEMP 36.8; O2SAT 95
[2022-03-31] MEDS: trazodone 50 mg Tablet PO (20:02)
[2022-03-31] MEDS: haloperidol 5 mg Tablet PO (20:02)
[2022-03-31 20:08] VITALS: BP 100/58; PULSE 65; RESP 16; TEMP 37.1; O2SAT 98
--- NOTE | 2022-03-31 20:53 | PC.NURSE ---
HALLUCINATIONS PT ENDORSED AUDITORY HALLUCINATIONS DURING ASSESSMENT. PT STATES THEY HAVE NOT GOTTEN BETTER TODAY. PT APPEARS ANXIOUS AND WITHDRAWN. PT WAS GIVEN HALDOL PO YESTERDAY EVENING AND IT DID HELP WITH THE HALLUCINATIONS, PT REQUESTED THE SAME MEDICATION TO HELP WITH THE VOICES. PT WAS GIVEN HALDOL 5MG PO AND IS NOW RESTING IN BED.
[2022-04-01 06:00] VITALS: BP 98/67; PULSE 65; RESP 18; TEMP 36.5; O2SAT 98; BMI 42.5
[2022-04-01] MEDS: ARIPiprazole 10 mg Tablet 15 MG PO (07:54)
[2022-04-01] MEDS: sertraline 50 mg Tablet 100 MG PO (07:54)
--- NOTE | 2022-04-01 11:23 | W.PM.NPUPNS ---
Subjective NPU Subjective: Patient continued to endorse auditory hallucinations. She endorsed significant alcohol use. She reported no side effects from her Abilify or Zoloft at this time. She continued to isolate herself on the unit. She denies any hurting herself or others. She continues to report low energy and low motivation. She reports some sleep continuity disruption. Mental Status Exam MSE Comments: This is an obese white female in hospital scrubs with improving grooming and eye contact. No abnormal movements except for mild psychomotor retardation. Cooperative with exam in no acute distress. Speech was slightly decreased rate and volume. Mood described as feeling stressed, affect is congruent. Thought process, organized. Thought content: patient denies any suicidal or homicidal ideation, reports continued paranoia and no delusions noted, reports auditory hallucinations but denies visual hallucinations. Attention and concentration are intact and memory appeared reliable but none were formally tested. She is alert and oriented to person place and time. Insight and judgment are fair. Impulse control was limited. Vitals/I&O/Wt Last Vital Signs Temp 98.4 F 04/01/22 14:00 Pulse 77 04/01/22 14:00 Resp 15 04/01/22 14:00 BP 98/70 04/01/22 14:00 Pulse Ox 97 04/01/22 14:00 Weight last 48 hrs Weight 102.149 kg Weight 102.149 kg Data NPU : 03/23/22 16:02 03/23/22 16:02 A&P Assessment and plan (1) Suicidal ideation: Status: Acute (2) Methamphetamine use disorder, severe: Status: Acute (3) Major depressive disorder, recurrent: Status: Acute (4) Cluster B personality disorder in adult: Status: Acute Plan This is a 31 year old white female with a history of trauma and genetic loading for mental health, addiction and lethality issues who presents with recent mental health challenges due to life stressors and having run out of her medications, open to restarting her medications. 1.? Continue current medications including zoloft 100mg in am and abilify 15 mg in am. 2.? Encourage individual, group and milieu therapy 3.? Continue q-15 minute check for safety 4.? Recommend sober living treatment at the highest level of care to which the patient is willing to commit. 5.? Plan for discharge Saturday. 6.? Evaluate for possible malingering if there is resistant to discharge at the beginning of the week. Involuntary Hold Information 96 Hour Hold: 96 Hour Involuntary Admission: No Attestations NPU Medical Necessity Statement*: Inpatient hospitalization is medically necessary and the clinically appropriate intervention at this time. We will monitor medications and make changes as indicated.? Likely length of stay is 2-4 days. Coding Level of Care Code Acute Environmental Science Instructor for Chg Fwd History Problem Focused Exam Problem Focused Medical Decision Making Straight Forward Diagnoses Suicidal ideation R45.851 Methamphetamine use disorder, severe F15.20 Major depressive disorder, recurrent F33.9 Cluster B personality disorder in adult F60.9
[2022-04-01 14:00] VITALS: BP 98/70; PULSE 77; RESP 15; TEMP 36.9; O2SAT 97
[2022-04-01] MEDS: nicotine 21 mg Patch 1 PATCH TRANSDERMA (15:03)
[2022-04-01] MEDS: magnesium hydroxide 30 mL UDC PO (15:48)
[2022-04-01 20:02] VITALS: BP 102/74; PULSE 119; RESP 20; TEMP 36.5; O2SAT 94
[2022-04-01] MEDS: trazodone 50 mg Tablet PO (20:32)
[2022-04-01] MEDS: OLANZapine 5 mg ODT PO (20:32)
--- NOTE | 2022-04-01 20:46 | PC.NURSE ---
zyprexa administered due to pt anxious and agitated
[2022-04-01] MEDS: haloperidol 5 mg Tablet PO (21:50)
[2022-04-02 06:00] VITALS: BP 108/72; PULSE 76; RESP 20; TEMP 36.8; O2SAT 95
--- NOTE | 2022-04-02 08:28 | PC.NURSE ---
UP IN HALLWAY AMBULATING CONVERSING WITH PEERS AND STAFF. APPEARS TO BE IN BETTER SPIRITS THIS AM. DENIES SI/HI AND AVH AT THIS TIME. DENIES PAIN. REPORTS SHE SLEPT ALL NIGHT AND IS FEELING BETTER. A&O TIMES THREE. SUPPORT VOICED.
[2022-04-02] MEDS: ARIPiprazole 10 mg Tablet 15 MG PO (08:48)
[2022-04-02] MEDS: OLANZapine 5 mg ODT PO (08:48)
[2022-04-02] MEDS: sertraline 50 mg Tablet 100 MG PO (08:48)
--- NOTE | 2022-04-02 09:05 | PC.NURSE ---
PT IN BED RESTING. APPEARS TO BE IN BETTER SPIRITS THIS AM AND ACTUALLY SMILED AND INTERACTED WITH THIS RN. PT DENIES PAIN. PT DENIES SI/HI AND VH AT THIS TIME. PT DOES ENDORSE HEARING VOICES STILL THAT ARE NEGATIVE AND TELLING HER THAT MY FAMILY IS MOVING AWAY AND IT MAKES ME ANXIOUS. THIS RN SPOKE WITH PT IN DEPTH ABOUT DC PLAN AND STAYING CLEAN. PT STATES SHE IS WANTING TO GO TO REHAB AND HAS HER APPLICATION FILLED OUT TO [facility]. INSTRUCTED PT TO GIVE [employer] MACHINE FEEDER HER APPLICATION TOMORROW SOI THEY CAN TURN IT IN FOR HER. ALL QUESTIONS ANSWERED AND SUPPORT VOICED.
--- NOTE | 2022-04-02 11:00 | P.NPUPN_ITS ---
Subjective NPU Subjective: Patient 25 y/o WF admitted voluntarily with history of psychosis, including auditory hallucinations and suicidal ideation. She reports no side effects from her medication. She reports no feelings of hopelessness. She continues to evoke some lack of motivation and reports that she has been able to manage the intensity of hallucinations. She reports interest in attending [facility] if a bed is available tommorow. Staff notes that the patient has been redirectable. She remained tired and apathetic on the unit. Patient presents today reporting that she is doing okay.? She is tolerating the increases in the medication without incident.? We discussed hoping that she would have steady improvement over the weekend and that [facility] still has a bed available on Saturday when they are back in business.? Medications: Reviewed: Yes Mental Status Exam MSE Comments: This is an obese white female in hospital scrubs with improving grooming and eye contact. No abnormal movements except for mild psychomotor retardation. Cooperative with exam in no acute distress. Speech was slightly decreased rate and volume. Mood described as feeling a little better,? affect remains flat. Thought process: linear and organized. Thought content: patient d enies any suicidal or homicidal ideation, reports continued paranoia and no delusions noted, reports auditory hallucinations but denies visual hallucinations. Attention and concentration are intact and memory appeared reliable but none were formally tested. She is alert and oriented to person place and time. ? Insight and judgment are fair. Impulse control appeared to be improving. Vitals/I&O/Wt Last Vital Signs Temp 98.3 F 04/02/22 13:59 Pulse 68 04/02/22 13:59 Resp 16 04/02/22 13:59 BP 100/69 04/02/22 13:59 Pulse Ox 97 04/02/22 13:59 Weight last 48 hrs Weight 102.149 kg Weight 102.149 kg Data NPU : 03/23/22 16:02 03/23/22 16:02 A&P Assessment and plan (1) Methamphetamine use disorder, severe: Status: Acute (2) Suicidal ideation: Status: Acute (3) Auditory hallucinations: Status: Acute Plan This is a 31 year old white female with a history of trauma and genetic loading for mental health, addiction and lethality issues who presents with recent mental health challenges due to life stressors and having run out of her medications, open to restarting her medications. 1.? Continue Zoloft to 100 mg p.o. every morning and Abilify to 15 mg p.o. every morning. 2.? Encourage individual, group and milieu therapy 3.? Continue q-15 minute check for safety 4.? Recommend sober living treatment at the highest level of care to which the patient is willing to commit. 5.? Plan for discharge tommorow 6.? Evaluate for possible malingering if there is resistant to discharge at the beginning of the week. Involuntary Hold Information 96 Hour Hold: 96 Hour Involuntary Admission: No Attestations NPU Medical Necessity Statement*: Inpatient hospitalization is medically necessary and the clinically appropriate intervention at this time. We will monitor medications and make changes as indicated.? Likely length of stay is likely 1-2 days. Coding Level of Care Code Established Pt Acute Chemical Production Technician for Brina Islasd Patient Type Established History Problem Focused Exam Problem Focused Medical Decision Making Straight Forward Diagnoses Methamphetamine use disorder, severe F15.20 Suicidal ideation R45.851 Auditory hallucinations R44.0
--- NOTE | 2022-04-02 11:45 | PC.NURSE ---
PRN MED PT GIVEN 5MG ZYPREXA FOR STATED AUDITORY HALLUCINATIONS,(VOICES), WILL CONTINUE TO MONITOR.
[2022-04-02 13:59] VITALS: BP 100/69; PULSE 68; RESP 16; TEMP 36.8; O2SAT 97
[2022-04-02] MEDS: trazodone 50 mg Tablet PO (20:35)
[2022-04-02] MEDS: hyDROXYzine 25 mg Capsule 50 MG PO (20:35)
[2022-04-02 22:00] VITALS: BP 104/69; PULSE 75; RESP 16; TEMP 36.7; O2SAT 97
[2022-04-03 06:00] VITALS: BP 94/66; PULSE 81; RESP 16; TEMP 36.7; O2SAT 98
[2022-04-03] MEDS: nicotine 21 mg Patch 1 PATCH TRANSDERMA (08:29)
[2022-04-03] MEDS: ARIPiprazole 10 mg Tablet 15 MG PO (08:29)
[2022-04-03] MEDS: sertraline 50 mg Tablet 100 MG PO (08:30)
[2022-04-03] MEDS: hyDROXYzine 25 mg Capsule 50 MG PO ×2 (08:30→20:20)
[2022-04-03] MEDS: OLANZapine 5 mg ODT PO (08:30)
--- NOTE | 2022-04-03 08:59 | PC.NURSE ---
PT IN BED RESTING. AROUSES TO VOICE. DENIES PAIN. DENIES SI/HI AND VH. CONTINUES TO ENDORSE AUDITORY HALLUCINATIONS. REPORTS THE VOICES ARE QUIETER TODAY. PT DOES REQUEST ANXIETY MEDS FOR THE VOICES. MED NURSE NOTIFIED. PT CONTINUES TO REST IN BED ONCE ASSESSMENT COMPLETED. AFFECT IS FLAT, PT IS WITHDRAWN AND ISLOTIVE. SUPPORT VOICED.
--- NOTE | 2022-04-03 10:38 | P.NPUPN_ITS ---
Subjective NPU Subjective: Patient 25 y/o WF admitted voluntarily with history of psychosis, including auditory hallucinations and suicidal ideation.?She continues to appear isolative and apathetic throughout the day. She reports a reduction in the intensity and volume of the voices. However, she continues to struggle with completion of routine activities of daily living. She continues to stay in her bedroom all day. She has n She reports no side effects from her medication.? She reports no feelings of hopelessness. She continues to evoke some lack of motivation and reports that she has been able to manage the intensity of hallucinations.? She reports interest in attending [facility] if a bed is available tommorow.? Staff notes that the patient has been redirectable.? She remained tired and apathetic on the unit. Mental Status Exam MSE Comments: his is an obese white female in hospital scrubs with improving grooming and eye contact. No abnormal movements except for mild psychomotor retardation. Cooperative with exam in no acute distress. Speech was slightly decreased rate and volume. Mood described as feeling a little better,? affect remains flat.? Thought process: linear and organized and superficial Thought content: patient denies any suicidal or homicidal ideation, reports continued paranoia and no delusions noted, reports auditory hallucinations but denies visual hallucinations. Attention and concentration are intact and memory appeared reliable but none were formally tested. She is alert and oriented to person place and time. ? Insight and judgment are fair. Impulse control appeared to be improving.?She remained somewhat apathetic and anergic on the unit, with significant lack of drive and motivation observed. Vitals/I&O/Wt Last Vital Signs Temp 98 F 04/03/22 14:00 Pulse 65 04/03/22 14:00 Resp 17 04/03/22 14:00 BP 99/74 04/03/22 14:00 Pulse Ox 100 04/03/22 14:00 Data NPU : 03/23/22 16:02 03/23/22 16:02 A&P Assessment and plan (1) Auditory hallucinations: Status: Acute (2) Suicidal ideation: Status: Acute (3) Methamphetamine use disorder, severe: Status: Acute Plan This is a 31 year old white female with a history of trauma and genetic loading for mental health, addiction and lethality issues who presents with recent mental health challenges due to life stressors and having run out of her medications, open to restarting her medications. 1.? Continue Zoloft to 100 mg p.o. every morning and increase Abilify to 20 mg p.o. every morning. 2.? Encourage individual, group and milieu therapy 3.? Continue q-15 minute check for safety 4.? Recommend sober living treatment at the highest level of care to which the patient is willing to commit. 5.? She does not appear to be ready to go home yet, continued negative symptoms and avolition, amotivation appreciated. He insight remains feeble. Involuntary Hold Information 96 Hour Hold: 96 Hour Involuntary Admission: No Attestations NPU Medical Necessity Statement*: Inpatient hospitalization is medically necessary and the clinically appropriate intervention at this time. We will monitor medications and make changes as indicated.? Likely length of stay is likely 1-2 days. Coding Level of Care Code Established Pt Acute Station Superintendent for Brina Ibanez Patient Type Established History Problem Focused Exam Problem Focused Medical Decision Making Straight Forward Diagnoses Auditory hallucinations R44.0 Suicidal ideation R45.851 Methamphetamine use disorder, severe F15.20
[2022-04-03 14:00] VITALS: BP 99/74; PULSE 65; RESP 17; TEMP 36.6; O2SAT 100
[2022-04-03] MEDS: magnesium hydroxide 30 mL UDC PO (15:57)
[2022-04-03 19:54] VITALS: BP 116/79; PULSE 88; RESP 18; TEMP 36.9; O2SAT 95
[2022-04-03] MEDS: trazodone 50 mg Tablet PO (20:20)
[2022-04-04 06:00] VITALS: BP 94/69; PULSE 81; RESP 19; TEMP 36.8; O2SAT 94
--- NOTE | 2022-04-04 09:16 | PC.NURSE ---
IN BED RESTING. AROUSES TO VOICE. PT STATES SHE SLEPT WELL. DENIES PAIN. DENIES SI/HI AND VH. CONTINUES TO ENDORSE AUDITORY HALLUCINATIONS AND HEARING VOICES THAT ARE NEGATIVE IN NATURE. PT DOES STATE THE VOICES ARE QUIETER TODAY BUT THEY ARE STILL THERE. PT REPORTS ANXIETY. MED NURSE TO GIVE PRN MEDICATION ORDERED FOR ANXIETY. SUPPORT VOICED.
[2022-04-04] MEDS: ARIPiprazole 10 mg Tablet 20 MG PO (09:43)
[2022-04-04] MEDS: sertraline 50 mg Tablet 100 MG PO (09:43)
--- NOTE | 2022-04-04 12:35 | P.NPUPN_ITS ---
Subjective NPU Subjective: Patient 25 y/o WF admitted voluntarily with history of psychosis, including auditory hallucinations and suicidal ideation. She reported feeling better today. She reported that she was thinking about the help that she might be able to receive at the rehabilitation facility [facility]. She states that she would be able to maintain her medication regimen there. She reported no side effects from the Abilify increased to 20 mg. She did report some difficulties falling asleep. Staff notes that the patient remains somewhat isolative and unmotivated as she did not appear to participate in groups. Mental Status Exam MSE Comments: She is an obese white female in hospital scrubs with improving grooming and eye contact. No abnormal movements except for mild psychomotor retardation. Cooperative with exam in no acute distress. Speech was slightly decreased rate and volume. Mood described better,? affect remains flat.? Thought process: linear and organized and superficial? Thought content: patient denies any suicidal or homicidal ideation, reports continued paranoia and no delusions noted, reports auditory hallucinations but denies visual hallucinations. Attention and concentration are intact and memory appeared reliable but none were formally tested. She is alert and oriented to person place and time. ? Insight and judgment are fair. Impulse control appeared to be improving.?She remained somewhat apathetic and anergic on the unit, with significant lack of drive and motivation observed.? Vitals/I&O/Wt Last Vital Signs Temp 98.3 F 04/04/22 06:00 Pulse 81 04/04/22 06:00 Resp 18 04/04/22 14:00 BP 94/69 04/04/22 06:00 Pulse Ox 94 04/04/22 06:00 Data NPU : 03/23/22 16:02 03/23/22 16:02 A&P Assessment and plan (1) Auditory hallucinations: Status: Acute (2) Suicidal ideation: Status: Acute (3) Methamphetamine use disorder, severe: Status: Acute (4) Cluster B personality disorder in adult: Status: Acute Plan Plan This is a 31 year old white female with a history of trauma and genetic loading for mental health, addiction and lethality issues who presents with recent mental health challenges due to life stressors and having run out of her medications, open to restarting her medications. 1.? Continue Zoloft to 100 mg p.o. every morning and continue Abilify to 20 mg p.o. every morning. 2.? Encourage individual, group and milieu therapy 3.? Continue q-15 minute check for safety 4.? Recommend sober living treatment at the highest level of care to which the patient is willing to commit. 5. Patient to likely to be transferred tommorow. Involuntary Hold Information 96 Hour Hold: 96 Hour Involuntary Admission: No Attestations NPU Medical Necessity Statement*: Inpatient hospitalization is medically necessary and the clinically appropriate intervention at this time. We will monitor medi cations and make changes as indicated.? Likely length of stay is likely 1-2 days. Coding Level of Care Code Established Pt Acute Retort Or Condenser Press Operator for Chg Fwd Patient Type Established History Problem Focused Exam Problem Focused Medical Decision Making Straight Forward Diagnoses Auditory hallucinations R44.0 Suicidal ideation R45.851 Methamphetamine use disorder, severe F15.20 Cluster B personality disorder in adult F60.9
[2022-04-04] MEDS: OLANZapine 5 mg ODT PO (13:09)
--- NOTE | 2022-04-04 13:10 | PC.NURSE ---
PRN ZYPREXA ZYDIS 5 MG GIVEN PO PER PT C/O STATED ANXIETY/AGITATION
[2022-04-04] MEDS: nicotine 21 mg Patch 1 PATCH TRANSDERMA (13:53)
[2022-04-04 14:00] VITALS: RESP 18
[2022-04-04] MEDS: hyDROXYzine 25 mg Capsule 50 MG PO (17:03)
--- NOTE | 2022-04-04 17:04 | PC.NURSE ---
PRN VISTARIL 50 MG GIVEN PO PER PT C/O STATED ANXIETY. NO OUTWARD S/S OF ANXIETY NOTED CURRENTLY
[2022-04-04 19:49] VITALS: BP 109/74; PULSE 78; RESP 18; TEMP 36.9; O2SAT 96
[2022-04-04] MEDS: trazodone 50 mg Tablet PO (20:13)
[2022-04-04] MEDS: haloperidol 5 mg Tablet PO (20:13)
--- NOTE | 2022-04-04 23:48 | PC.NURSE ---
PRN PT REQUESTED MEDICATION TO HELP HER SLEEP AND FOR AUDITORY HALLUCINATIONS. PT WAS GIVEN TRAZADONE AND HALDOL
[2022-04-05 06:00] VITALS: BP 100/67; PULSE 66; RESP 16; TEMP 36.9; O2SAT 97
[2022-04-05] MEDS: ARIPiprazole 10 mg Tablet 20 MG PO (08:02)
[2022-04-05] MEDS: nicotine 21 mg Patch 1 PATCH TRANSDERMA (08:02)
[2022-04-05] MEDS: sertraline 50 mg Tablet 100 MG PO (08:02)
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
[2022-04-05 09:19] VITALS: BP 100/67; PULSE 66; RESP 16; TEMP 36.9; O2SAT 97
[2022-04-05] MEDS: OLANZapine 5 mg ODT PO (09:47)
--- NOTE | 2022-04-05 09:48 | PC.NURSE ---
PRN ZYPREXA ZYDIS 5 MG GIVEN PO PER PT REQUEST OF ZYPREXA SPECIFICALLY. NO OUTWARD S/S OF ANXIETY/AGITATION NOTED. PT EDUCATED THAT SHE WAS BEING DISCHARGED TODAY, THAT PRN MEDICATIONS AREN'T USUALLY GIVEN TO PATIENT'S BEING DISCHARGED. PATIENT SERVICES REPRESENTATIVE JOHN APPROACHED THIS NURSE SAYING THE DOCTOR SAID IT IS OKAY FOR HER TO HAVE ZYPREXA NOW.
== END 2022-04-05 11:57 | disposition home or self-care (01) | DRG 885 ==
LOC: ER 16:10 → NP 16:45
PROVIDERS: Admitting Provider Psychiatry & Neurology Psychiatry; Emergency Provider Physician Assistant; Visit Provider Psychiatry & Neurology Psychiatry
DX: F33.9 Major depressive disorder, recurrent, unspecified (principal); R45.851 Suicidal ideations; Z68.41 Body mass index [BMI] 40.0-44.9, adult; R44.0 Auditory hallucinations; F60.89 Other specific personality disorders; F15.10 Other stimulant abuse, uncomplicated; Z91.14 Patient's other noncompliance with medication regimen; Z88.1 Allergy status to other antibiotic agents; F17.210 Nicotine dependence, cigarettes, uncomplicated; E66.9 Obesity, unspecified
CPT/HCPCS: 80053; 80306; 80307; 81001; 84703; 85025; 97150; 97165; 99285

== ENCOUNTER 2023-01-20 15:37 | Emergency (ER) | payer MEDICAID, SELFPAY ==
[2023-01-20 15:56] VITALS: PULSE 138; TEMP 36.9; O2SAT 96; BMI 43.4
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
[2023-01-20] MEDS: LORazepam 1 mg Tablet PO (17:23)
--- NOTE | 2023-01-20 17:40 | ECG_ITS ---
[facility] Test Date: 2023-01-20 Pat Name: Haylee Pickard Department: Room: Gender: Female Therapeutic Assistant: : 1990 Requested By: Larry Fallon Order Number: [id number] Ant MD: Foreign Sunshine M.D. Measurements Intervals [place] Rate: 134 P: 38 MS: 129 QRS: 99 QRSD: 84 T: 19 QT: 315 QTc: 471 Interpretive Statements SINUS TACHYCARDIA BORDERLINE RIGHT AXIS DEVIATION [QRS AXIS > 90] PATTERN CONSISTENT WITH PULMONARY DISEASE Compared to ECG 03/05/2020 23:54:43 No significant changes Electronically Signed On 01-21-2023 14:26:25 CDT by Foreign Sunshine M.D. [id number]
[2023-01-20 17:44] VITALS: BP 128/81; PULSE 120; RESP 20; O2SAT 98
--- NOTE | 2023-01-20 17:47 | PC.PHAR ---
medications entered are medications that requested to be put in for med rec-notes are made in the pharmacy comments with last filled dates and if medication was on hold
[2023-01-20 18:01] VITALS: BP 115/85; PULSE 141; RESP 20; O2SAT 96
[2023-01-20 18:30] VITALS: BP 146/88; PULSE 132; RESP 18; O2SAT 93
[2023-01-20 18:41] LABS: HCG, Serum Qual Negative (Negative)
[2023-01-20 18:57] LABS: Alanine Aminotransferase 25 U/L (0-33); Albumin Level 4.6 g/dL (3.5-5.2); Alkaline Phosphatase 77 U/L (35-105); Anion Gap 17.4 (5-19); Aspartate Amino Transferase 31 U/L (0-32); Blood Urea Nitrogen 12 mg/dL (6-20); Carbon Dioxide 21 mmol/L (22-29); Chloride 94 mmol/L (98-107); Globulin 3.3 g/dL (1.3-4.6); Glomerular Filtration Rate 82.1 mL/min (90-130); Glucose 112 mg/dL (65-115); Osmolality Calculated 269 mOsm/kg (285-295); Potassium 3.4 mmol/L (3.5-5.1); Sodium 129 mmol/L (136-145); Total Bilirubin 0.6 mg/dL (0.15-1.2); Total Protein 7.9 g/dL (6.6-8.7)
[2023-01-20 18:59] LABS: Acetaminophen < 5.0 ug/mL (10-30); Alcohol Level < 10 mg/dL (0-10); Basophils % 0.3 %; Eosinophils # 0.1 10^3/uL (0.0-0.8); Eosinophils % 1.1 %; Hematocrit 43.4 % (37.0-47.0); Hemoglobin 14.8 g/dL (11.5-15.3); Lymphocytes # 3.7 10^3/uL (0.8-4.8); Lymphocytes % 27.6 %; Mean Corpuscular HGB Conc 34.1 g/dL (30.0-36.0); Mean Corpuscular Hemoglobin 31.5 pg (28.0-34.0); Mean Corpuscular Volume 92.3 fl (81-99); Mean Platelet Volume 11.3 fL (7.4-10.4); Monocytes # 0.9 10^3/uL (0.2-0.9); Monocytes % 6.9 %; Neutrophils # 8.44 10^3/uL (1.8-7.7); Neutrophils % 63.7 %; Nucleated Red Blood Cells % 0 %; Platelet Count 272 10^3/cmm (130-400); Red Cell Distribution Width 12.7 % (12.1-15.1); Salicylate < 0.3 mg/dL (3-10); White Blood Count 13.3 10^3/uL (4.0-10.0)
[2023-01-20 19:00] VITALS: BP 118/89; PULSE 128; RESP 20; O2SAT 92
[2023-01-20 19:43] LABS: Amphetamines Screen Urine Positive (Negative); Barbiturates Screen Urine Negative (Negative); Benzodiazepines Screen Urine Positive (Negative); Cocaine Screen Urine Negative (Negative); Opiate Screen Urine Negative (Negative); PCP Screen Urine Negative (Negative); THC Screen Urine Negative (Negative)
--- NOTE | 2023-01-25 11:15 | DCPLANNER ---
clinical engineering manager called patient due to no primary care physician - no answer at this time.
== END 2023-01-20 19:44 | disposition home or self-care (01) ==
PROVIDERS: Emergency Provider Emergency Medicine
DX: F41.9 Anxiety disorder, unspecified (principal); F15.10 Other stimulant abuse, uncomplicated; E86.0 Dehydration; F17.210 Nicotine dependence, cigarettes, uncomplicated
CPT/HCPCS: 36415; 80053; 80306; 80307; 84443; 84703; 85025; 93005; 99284

== ENCOUNTER 2023-12-17 15:31 | Inpatient (IN) | payer SELFPAY ==
[2023-12-17 15:38] VITALS: BP 158/116; PULSE 89; RESP 20; TEMP 36.7; O2SAT 100; BMI 44.9
--- NOTE | 2023-12-17 16:14 | PC.PHAR ---
PT STATES DOES NOT TAKE ANY MEDICATIONS
--- NOTE | 2023-12-17 16:28 | W.ED.PSYCHS ---
HPI - Psych General: Chief Complaint: Psychiatric Symptoms Stated Complaint: abd pain, stress, hallucination Time Seen by Provider: 12/17/23 15:47 Source: patient Mode of arrival: ambulatory Limitations: no limitations History of Present Illness: 33-year-old female who states that she has not been taking her meds and she has been hearing voices. She states that these voices and telling her to harm self and she has had thoughts of killing herself. She denies any worsening proving factors. States she has been having extreme anxiety as well causing her to have diffuse abdominal pains. She denies any vomiting or diarrhea. Associated symptoms: Reports auditory hallucinations, depression and suicidal ideation Review of Systems Const: Denies: fever(s), chills, body aches or change in appetite ENMT: Denies: throat pain or dental pain Card: Denies: chest pain Resp: Denies: dyspnea GI: Reports: abdominal pain; Denies: nausea, vomiting or diarrhea : Denies: dysuria Musc: Denies: neck pain or back pain Skin/Breast: Denies: rash Neuro: Denies: headache(s) Psych: Reports: depression, auditory hallucinations and suicidal ideation [facility] PFSH: Medical History (Updated 12/17/23 @ 17:46 by Ajay Phelps MD) No pertinent family history Surgical History No pertinent past surgical history Social History Smoking and tobacco/nicotine status: current every day tobacco/nicotine user Physical Exam Const: COMMON NORMALS: no acute distress, patient oriented x3 and healthy appearing HENMT: COMMON NORMALS: normocephalic and atraumatic HEAD & SCALP: normocephalic and atraumatic Eye: COMMON NORMALS: Equal, round and reactive pupils present and EOMs intact bilaterally PUPIL: Yes Equal, round and reactive pupils present Neck/C-Spine: COMMON NORMALS: full ROM and supple Chest: COMMONS NORMALS: normal inspection of the chest Resp: COMMON NORMALS: normal respiratory effort Cardio: COMMON NORMALS: regular rate, regular rhythm and No murmurs present (Cardio) RATE: regular rate RHYTHM: regular rhythm GI: COMMON NORMALS: Normal to inspection, nondistended, normoactive bowel sounds present, Soft to palpation, non-tender and no masses PALPATION: Yes Soft to palpation Extremity: COMMON NORMALS: normal to inspection and full ROM Neuro: COMMON NORMALS: patient oriented x3, moves all extremities and no focal motor deficits Psych: COMMON NORMALS: mental status grossly normal, Normal thought process present and cooperative THOUGHT PROCESS: Normal thought process present THOUGHT CONTENT: Yes Suicidality present and Yes Hallucination(s) present Skin: COMMON NORMALS: no rashes or lesions noted and no wounds GENERAL SKIN EXAM: no rashes or lesions noted Course Vital Signs: Vital signs: Vital Signs Temperature 98.0 F 12/17/23 15:38 Pulse Rate 89 12/17/23 15:38 Respiratory Rate 20 H 12/17/23 15:38 Blood Pressure 158/116 12/17/23 15:38 Pulse Oximetry 100 12/17/23 15:38 Oxygen Delivery Me thod Room Air 12/17/23 15:38 MDM - Psych Medical Decision Making Patient presents here with suicidal ideation along with hearing voices she has been noncompliant on her meds. Placed on a 96-hour hold patient is medically cleared I spoke to the psychiatrist and will admit. Medical Records I reviewed the patient's medical records. Lab Data I reviewed the patient's lab results. 12/17/23 16:34 12/17/23 16:34 Laboratory Results WBC 9.89 10^3/uL (3.29-11.43) 12/17/23 16:34 RBC 4.51 10^6/uL (3.85-5.65) 12/17/23 16:34 Hgb 14.00 g/dL (11.27-16.99) 12/17/23 16:34 Hct 41.8 % (36-47) 12/17/23 16:34 MCV 92.7 fl (85-98) 12/17/23 16:34 MCH 31.0 pg (27-33) 12/17/23 16:34 MCHC 33.5 g/dL (30-55) 12/17/23 16:34 RDW 12.4 % (12.1-15.1) 12/17/23 16:34 Plt Count 244 10^3/cmm (157-399) 12/17/23 16:34 MPV 10.8 fL (7.4-10.4) H 12/17/23 16:34 Neut % (Auto) 62.9 % 12/17/23 16:34 Lymph % (Auto) 29.8 % 12/17/23 16:34 [place] % (Auto) 6.3 % 12/17/23 16:34 Eos % (Auto) 0.5 % 12/17/23 16:34 Baso % (Auto) 0.2 % 12/17/23 16:34 Neut # (Auto) 6.22 10^3/uL (1.8-7.7) 12/17/23 16:34 Lymph # (Auto) 3.0 10^3/uL (0.8-4.8) 12/17/23 16:34 [place] # (Auto) 0.6 10^3/uL (0.2-0.9) 12/17/23 16:34 Eos # (Auto) 0.1 10^3/uL (0.0-0.8) 12/17/23 16:34 Baso # (Auto) 0.0 10^3/uL (0.0-0.1) 12/17/23 16:34 Nucleated RBC % (auto) 0 % 12/17/23 16:34 Nucleated RBCs # 0.0 /100WBC 12/17/23 16:34 Sodium 144 mmol/L (136-145) 12/17/23 16:34 Potassium 3.4 mmol/L (3.5-5.1) L 12/17/23 16:34 Chloride 106 mmol/L (98-107) 12/17/23 16:34 Carbon Dioxide 25 mmol/L (22-29) 12/17/23 16:34 Anion Gap 16.4 (5-19) 12/17/23 16:34 BUN 7 mg/dL (6-20) 12/17/23 16:34 Creatinine 0.5 mg/dL (0.5-0.9) 12/17/23 16:34 GFR Calculation 140.4 mL/min (90-130) H 12/17/23 16:34 Glucose 99 mg/dL (65-115) 12/17/23 16:34 Calculated Osmolality 296 mOsm/kg (285-295) H 12/17/23 16:34 Calcium 9.2 mg/dL (8.5-10.5) 12/17/23 16:34 Total Bilirubin 0.4 mg/dL (0.15-1.2) 12/17/23 16:34 AST 27 U/L (0-32) 12/17/23 16:34 ALT 21 U/L (0-33) 12/17/23 16:34 Alkaline Phosphatase 69 U/L (35-105) 12/17/23 16:34 Total Protein 7.9 g/dL (6.6-8.7) 12/17/23 16:34 Albumin 4.5 g/dL (3.5-5.2) 12/17/23 16:34 Globulin 3.4 g/dL (1.3-4.6) 12/17/23 16:34 Lipase 32 U/L (13-60) 12/17/23 16:34 HCG, Qual Negative (Negative) 12/17/23 16:34 Salicylates < 0.3 mg/dL (3-10) L 12/17/23 16:34 Acetaminophen < 5.0 ug/mL (10-30) L 12/17/23 16:34 Ethyl Alcohol < 10 mg/dL (0-10) 12/17/23 16:34 No radiology studies performed this visit Discharge Plan Discharge Patient Disposition: Admitted As Inpatient Clinical Impression: Suicidal ideation, Acute psychosis Condition: Stable Prescriptions: No Action No Known Home Medications Coding Level of Care Code ED [employer] for Brina Ibanez
[2023-12-17] MEDS: LORazepam 2 mg/mL INJ 10 mL MDV IM (16:41)
[2023-12-17 16:47] LABS: Basophils % 0.2 %; Eosinophils # 0.1 10^3/uL (0.0-0.8); Eosinophils % 0.5 %; Hematocrit 41.8 % (36-47); Lymphocytes % 29.8 %; Mean Corpuscular HGB Conc 33.5 g/dL (30-55); Mean Corpuscular Volume 92.7 fl (85-98); Mean Platelet Volume 10.8 fL (7.4-10.4); Monocytes # 0.6 10^3/uL (0.2-0.9); Monocytes % 6.3 %; Neutrophils # 6.22 10^3/uL (1.8-7.7); Neutrophils % 62.9 %; Nucleated Red Blood Cells % 0 %; Platelet Count 244 10^3/cmm (157-399); Red Blood Count 4.51 10^6/uL (3.85-5.65); Red Cell Distribution Width 12.4 % (12.1-15.1); White Blood Count 9.89 10^3/uL (3.29-11.43)
[2023-12-17 17:10] LABS: Alanine Aminotransferase 21 U/L (0-33); Albumin Level 4.5 g/dL (3.5-5.2); Alkaline Phosphatase 69 U/L (35-105); Anion Gap 16.4 (5-19); Aspartate Amino Transferase 27 U/L (0-32); Blood Urea Nitrogen 7 mg/dL (6-20); Calcium 9.2 mg/dL (8.5-10.5); Carbon Dioxide 25 mmol/L (22-29); Chloride 106 mmol/L (98-107); Creatinine Clr Calc Pharmacy 178.1579; Globulin 3.4 g/dL (1.3-4.6); Glomerular Filtration Rate 140.4 mL/min (90-130); Glucose 99 mg/dL (65-115); Lipase 32 U/L (13-60); Osmolality Calculated 296 mOsm/kg (285-295); Potassium 3.4 mmol/L (3.5-5.1); Sodium 144 mmol/L (136-145); Total Bilirubin 0.4 mg/dL (0.15-1.2); Total Protein 7.9 g/dL (6.6-8.7)
[2023-12-17 17:12] LABS: Acetaminophen < 5.0 ug/mL (10-30); Alcohol Level < 10 mg/dL (0-10); Salicylate < 0.3 mg/dL (3-10)
--- NOTE | 2023-12-17 17:15 | PC.NURSE ---
96 hour hold rights read to patient. Patient verbalized understandings. Copy of rights given to patient.
[2023-12-17 17:41] LABS: HCG, Serum Qual Negative (Negative)
[2023-12-17 18:15] VITALS: BP 110/74; PULSE 68; RESP 16; TEMP 36.6; O2SAT 98
[2023-12-17] MEDS: OLANZapine 5 mg ODT PO (18:30)
[2023-12-17] MEDS: blistex lip oint 7 gm Tube 1 APPLIC TOPICAL (18:49)
[2023-12-17] MEDS: LORazepam 2 mg/mL INJ 1 mL 1 MG IM (19:05)
--- NOTE | 2023-12-17 19:05 | PC.NURSE ---
unable to scan ativan vial because it was wasted along with 0.5 mL of ativan, witnessed by JAMES Fried.
--- NOTE | 2023-12-17 19:30 | PC.NURSE ---
Patient arrived to the unit via wheelchair with security. Patient tremulous. During admission assessment, patient denies SI, HI, AVH. Patient endorses anxiety and depression. Onset of anxiety and depression was one week ago, per patient. Patient unable to give a cause for this. Patient's responses are delayed. Patient appears to be dealing with internal stimuli.
[2023-12-17 20:08] VITALS: BP 120/72; PULSE 106; RESP 20; TEMP 36.4; O2SAT 99
[2023-12-18 06:00] VITALS: BP 115/76; PULSE 89; RESP 18; TEMP 36.6; O2SAT 98
[2023-12-18] MEDS: OLANZapine 5 mg ODT PO (08:22)
[2023-12-18 14:00] VITALS: BP 117/69; PULSE 87; RESP 20; TEMP 36.6; O2SAT 95
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
[2023-12-18] MEDS: nicotine 2 mg Gum BUCCAL (19:31)
[2023-12-18] MEDS: trazodone 50 mg Tablet PO (19:31)
[2023-12-18 20:31] VITALS: BP 115/63; PULSE 94; RESP 18; TEMP 36.8; O2SAT 98
[2023-12-19 06:00] VITALS: BP 118/79; PULSE 71; RESP 18; TEMP 36.8; O2SAT 96
--- NOTE | 2023-12-19 09:16 | PC.NURSE ---
RESTING IN BED, PT IS NOTED TO BE WITHDRAWN AND ISOLATES TO ROOM. DENIES PAIN. DENIES SI/HI AND AVH AT THIS TIME. RATES ANXIETY AND DEPRESSION. PT WAS ENCOURAGED TO GET UP FOR BREAKFAST BUT STAYED IN BED. ALL QUESTIONS ANSWERED AND SUPPORT WAS VOICED.
[2023-12-19] MEDS: nicotine 4 mg lozenge MUCOUS MEM (12:05)
[2023-12-19 14:00] VITALS: BP 155/100; PULSE 89; RESP 20; TEMP 36.6; O2SAT 97
--- NOTE | 2023-12-19 14:06 | W.PM.NPUPNS ---
Subjective NPU Subjective: Patient is a 33 y/o WF admitted voluntarily with history of psychosis, methamphetamine dependence and depression endorsing auditory hallucinations and suicidal ideation. Patient had refused to provide a urine screen and continued to reiterate that she had not used methamphetamine. Patient appeared lethargic and remained tearful on the milieu. She had reported having some suicidal thoughts and continued to report having mood swings. She had been in agreement with resuming her medications and was compliant with these medications without reporting side effects. She had reported homelessness and increased consumption of alcohol but continued to remain steadfast that she had not used methamphetamine Mental Status Exam MSE Comments: This is an obese white female in hospital scrubs with poor grooming and poor eye contact. No abnormal movements except for severe psychomotor retardation. She was minimally cooperative with exam and appeared in moderate distress. Speech was decreased in productivity, rate and decreased in volume. Mood described depressed. Her affect is restricted in range. Thought process was linear. Thought content: patient endorsed suicidal ideation and denied homicidal ideation. She did appear to be responding to internal stimuli and denied any visual hallucinations. There was no overt delusions. Attention and concentration are impaired. Her memory appeared unreliable both recent and remote. She is alert and oriented to person and place and time. Her insight is feeble and judgment is poor. Impulse control is limited. Vitals/I&O/Wt Last Vital Signs Temp 98.2 F 12/19/23 06:00 Pulse 71 12/19/23 06:00 Resp 18 12/19/23 06:00 BP 118/79 12/19/23 06:00 Pulse Ox 96 12/19/23 06:00 O2 Del Method Room Air 12/18/23 20:31 Weight last 48 hrs Weight 107.955 kg Data NPU 12/17/23 16:34 12/17/23 16:34 A&P Assessment and plan (1) Acute psychosis: (2) Cluster B personality disorder in adult: (3) Depression, unspecified: (4) Auditory hallucinations: (5) Suicidal ideation: (6) Methamphetamine use disorder, severe: Plan Plan This is a 33 year old white female with a history of trauma and genetic loading for mental health, addiction and lethality issues who presents with recent mental health challenges due to life stressors and having again run out of her medications, open to restarting her medications to target mood and alleged psychosis. 1.? Continue Zoloft 100mg in am and restart Abilify 10mg daily. Awaiting urine drug screen. 2.? Encourage individual, group and milieu therapy 3.? Continue q-15 minute check for safety 4.? Recommend sober living treatment at the highest level of care to which the patient is willing to commit. 5. Will attempt to gather collateral information. Involuntary Hold Information 96 Hour Hold: 96 Hour Involuntary Admission: Yes 96 Hour Hold Ending Date: 12/23/23 96 Hour Hold Ending Time: 16:38 Attestations NPU Medical Necessity Statement*: Inpatient hospitalization is medically necessary and the clinically appropriate intervention at this time. We will monitor medications and make changes as indicated. The patient's likely length of stay is three to five days. Coding Level of Care Code Acute Code for [facility] Fwd Diagnoses Acute psychosis F23 Cluster B personality disorder in adult F60.9 Depression, unspecified F32.A Auditory hallucinations R44.0 Suicidal ideation R45.851 Methamphetamine use disorder, severe F15.20
[2023-12-19] MEDS: sertraline 100 mg Tablet PO (14:50)
[2023-12-19] MEDS: ARIPiprazole 10 mg Tablet PO (14:50)
[2023-12-19 20:09] VITALS: BP 137/85; PULSE 78; RESP 16; TEMP 37.2; O2SAT 97
[2023-12-19] MEDS: trazodone 50 mg Tablet PO (20:31)
[2023-12-20 06:00] VITALS: BP 132/89; PULSE 77; RESP 16; TEMP 36.7; O2SAT 94
--- NOTE | 2023-12-20 08:49 | PC.NURSE ---
IN BED RESTING. AROUSES BRIEFLY. DENIES PAIN.. DENIES SI/HI AND AVH AT THIS TIME. RATES ANXIETY AND DEPRESSION 0/10. PT IS NOTED TO HAVE FLAT AFFECT AND DEPRESSED MOOD. SUPPORT VOICED.
[2023-12-20] MEDS: ARIPiprazole 10 mg Tablet PO (10:03)
[2023-12-20] MEDS: sertraline 100 mg Tablet PO (10:03)
[2023-12-20] MEDS: nicotine 2 mg Gum BUCCAL (11:15)
[2023-12-20 14:00] VITALS: BP 134/81; PULSE 81; RESP 20; TEMP 37; O2SAT 97
[2023-12-20] MEDS: OLANZapine 5 mg ODT PO (16:55)
--- NOTE | 2023-12-20 19:00 | P.NPUPN_ITS ---
Subjective NPU 2 Subjective: Patient presented today reporting that she is doing better than she was yesterday. She endorsed that she was wanting to get home sooner rather than later. She was continuing to refuse the urine drug screen and we discussed the importance of her being transparent with her situation and honest with her self. She denied any side effects to medications. Mental Status Exam 2 MSE Comments: This is an obese likely morbidly obese white female in hospital scrubs with poor grooming and poor eye contact. No abnormal movements except for significant psychomotor retardation. She mostly cooperative with exam and appeared in moderate distress. Speech was decreased in productivity, rate and decreased in volume. Mood described feeling a little better, affect was subdued and restricted. Thought process was linear. Thought content: patient denied active suicidal ideation and denied homicidal ideation. She did not appear to be responding to internal stimuli and denied any auditory or visual hallucinations. There was no overt delusions reported or noted. Attention and concentration are limited. Her memory appeared unreliable both recent and remote. She is alert and oriented to person and place and time. Her insight and judgment are poor. Impulse control is limited. Vitals/I&O/Wt Last Vital Signs Temp 98.6 F 12/20/23 14:00 Pulse 81 12/20/23 14:00 Resp 20 H 12/20/23 14:00 BP 134/81 12/20/23 14:00 Pulse Ox 97 12/20/23 14:00 O2 Del Method Room Air 12/20/23 14:00 Data NPU 12/17/23 16:34 12/17/23 16:34 A&P Assessment and plan (1) Acute psychosis: (2) Cluster B personality disorder in adult: (3) Depression, unspecified: (4) Auditory hallucinations: (5) Suicidal ideation: (6) Methamphetamine use disorder, severe: Plan Plan This is a 33 year old white female with a history of trauma and genetic loading for mental health, addiction and lethality issues who presents with recent mental health challenges due to life stressors and having again run out of her medications, open to restarting her medications to target mood and alleged psychosis. 1.? Continued the matter Zoloft 100mg in am and restarted Abilify 10mg daily. Awaiting urine drug screen. 2.? Encourage individual, group and milieu therapy 3.? Continue q-15 minute check for safety 4.? Recommend sober living treatment at the highest level of care to which the patient is willing to commit. 5. Will attempt to gather collateral information. Involuntary Hold Information 2 96 Hour Hold: 96 Hour Involuntary Admission: Yes 96 Hour Hold Ending Date: 12/23/23 96 Hour Hold Ending Time: 16:38 Attestations NPU 2 Medical Necessity Statement*: Inpatient hospitalization is medically necessary and the clinically appropriate intervention at this time. We will monitor medications and make changes as indicated. The patient's likely length of stay is three to four days. Coding Level of Care Code Acute Code for [facility] Fwd Diagnoses Acute psychosis F23 Cluster B personality disorder in adult F60.9 Depression, unspecified F32.A Auditory hallucinations R44.0 Suicidal ideation R45.851 Methamphetamine use disorder, severe F15.20
[2023-12-20 20:09] VITALS: BP 119/93; PULSE 69; RESP 16; O2SAT 95
[2023-12-20 20:16] LABS: Add Urine Microscopic? YES; Bilirubin Urine Neg (Negative); Glucose Urine UA Norm (Normal); Ketones Urine Negative (Negative); Leukocyte Esterase Urine Negative (Negative); Nitrate Urine Negative (Negative); Protein Urine Neg (Negative); Urine Appearance SL Hazy (CLEAR); Urine Color Yellow (Yellow); Urobilinogen Urine Neg (Negative); pH Urine 7 (5-7)
[2023-12-20 20:17] LABS: Add Urine Culture? Yes; Bacteria Urine TRACE /hpf; Blood Urine 3+ (Negative); RBC Urine 25-40 /hpf (0-2); Squamous Epithelial Cell Urine 0-4 /hpf (0-5); WBC Urine 0-4 /hpf (0-5)
[2023-12-20 20:19] LABS: Amphetamines Screen Urine Negative (Negative); Barbiturates Screen Urine Negative (Negative); Benzodiazepines Screen Urine Positive (Negative); Cocaine Screen Urine Negative (Negative); Opiate Screen Urine Negative (Negative); PCP Screen Urine Negative (Negative); THC Screen Urine Negative (Negative)
[2023-12-21 06:00] VITALS: BP 144/77; PULSE 71; RESP 16; O2SAT 97
[2023-12-21] MEDS: sertraline 100 mg Tablet PO (09:29)
[2023-12-21] MEDS: ARIPiprazole 10 mg Tablet PO (09:29)
--- NOTE | 2023-12-21 09:33 | PC.NURSE ---
During morning assessment, patient stated that her anxiety was better. Patient denies depression, SI, HI, AVH. Patient denied any needs. Patient has bland affect. Withdrawn to room.
--- NOTE | 2023-12-21 11:33 | P.NPUPN_ITS ---
Subjective NPU 2 Subjective: Patient presented today more open with her speech. She was able to talk about her hope for sobriety and what she feels she needs to do to avoid creating a situation where she is having active addiction once she leaves the hospital. We discussed the medication and she denied any side effects thus far. She did report that she had a commitment to following up with the treatment programs that the social work team are able to create for her. Mental Status Exam 2 MSE Comments: This is an obese likely morbidly obese white female in hospital scrubs with poor grooming and poor eye contact. No abnormal movements except for significant psychomotor retardation. She mostly cooperative with exam and appeared in mild distress. Speech was more spontaneous with more normal rate and decreased in volume. Mood described feeling a little better, affect was subdued and less restricted. Thought process was linear. Thought content: patient denied active suicidal ideation and denied homicidal ideation. She did not appear to be responding to internal stimuli and denied any auditory or visual hallucinations. There was no overt delusions reported or noted. Attention and concentration are limited. Her memory appeared unreliable both recent and remote. She is alert and oriented to person and place and time. Her insight and judgment are poor. Impulse control is limited. Vitals/I&O/Wt Last Vital Signs Temp 98.6 F 12/20/23 14:00 Pulse 71 12/21/23 06:00 Resp 16 12/21/23 06:00 BP 144/77 12/21/23 06:00 Pulse Ox 97 12/21/23 06:00 O2 Del Method Room Air 12/20/23 20:09 Data NPU 12/17/23 16:34 12/17/23 16:34 A&P Assessment and plan (1) Acute psychosis: (2) Cluster B personality disorder in adult: (3) Depression, unspecified: (4) Auditory hallucinations: (5) Suicidal ideation: (6) Methamphetamine use disorder, severe: Plan Plan This is a 33 year old white female with a history of trauma and genetic loading for mental health, addiction and lethality issues who presents with recent mental health challenges due to life stressors and having again run out of her medications, open to restarting her medications to target mood and alleged psychosis. 1.? Continued the matter Zoloft 100mg in am and restarted Abilify 10mg daily. Awaiting urine drug screen. 2.? Encourage individual, group and milieu therapy 3.? Continue q-15 minute check for safety 4.? Recommend sober living treatment at the highest level of care to which the patient is willing to commit. 5. Will attempt to gather collateral information. Involuntary Hold Information 2 96 Hour Hold: 96 Hour Involuntary Admission: Yes 96 Hour Hold Ending Date: 12/23/23 96 Hour Hold Ending Time: 16:38 Attestations NPU 2 Medical Necessity Statement*: Inpatient hospitalization is medically necessary and the clinically appropriate intervention at this time. We will monitor medications and make changes as indicated. The patient's likely length of stay is 2-3 days. Coding Level of Care Code Acute Code for [facility] Fwd Diagnoses Acute psychosis F23 Cluster B personality disorder in adult F60.9 Depression, unspecified F32.A Auditory hallucinations R44.0 Suicidal ideation R45.851 Methamphetamine use disorder, severe F15.20
[2023-12-21 14:00] VITALS: BP 126/71; PULSE 74; RESP 16; TEMP 36.9; O2SAT 97
[2023-12-21] MEDS: nicotine 21 mg Patch 1 PATCH TRANSDERMA (16:00)
[2023-12-21] MEDS: ibuprofen 600 mg Tablet PO (16:46)
[2023-12-21] MEDS: OLANZapine 5 mg ODT PO (17:35)
--- NOTE | 2023-12-21 17:36 | PC.NURSE ---
Patient visibly anxious, tearful. Administered zyprexa 5mg ODT
[2023-12-21 19:47] VITALS: BP 104/67; PULSE 80; RESP 16; TEMP 36.9; O2SAT 96
[2023-12-22 06:00] VITALS: BP 119/78; PULSE 69; RESP 16; O2SAT 95
[2023-12-22] MEDS: ARIPiprazole 10 mg Tablet PO (08:23)
[2023-12-22] MEDS: sertraline 100 mg Tablet PO (08:23)
[2023-12-22] MEDS: ibuprofen 600 mg Tablet PO ×2 (08:23→17:04)
--- NOTE | 2023-12-22 11:36 | P.NPUPN_ITS ---
Subjective NPU 2 Subjective: Patient presented today reporting that she is feeling better. Staff report less isolation and she was seen for the first time by this fiction and nonfiction prose writer out of her bed. She reports that the medication has been helpful but she continues to have some symptoms. We discussed the risks, benefits and alternatives of increasing the Abilify to 15 mg and she understood and agreed to proceed as is documented in this note. She asked about as needed Zyprexa versus Haldol to help with breakthrough symptoms and we discussed the increase as our primary approach. She denied any side effects to the medication. Mental Status Exam 2 MSE Comments: This is an obese likely morbidly obese white female in hospital scrubs with poor grooming and poor eye contact. No abnormal movements except for significant psychomotor retardation. She mostly cooperative with exam and appeared in mild distress. Speech was more spontaneous with more normal rate and decreased in volume. Mood described feeling a little better, affect was subdued and less restricted. Thought process was linear. Thought content: patient denied active suicidal ideation and denied homicidal ideation. She did not appear to be responding to internal stimuli and denied any auditory or visual hallucinations. There was no overt delusions reported or noted. Attention and concentration are limited. Her memory appeared unreliable both recent and remote. She is alert and oriented to person and place and time. Her insight and judgment are poor. Impulse control is limited. Vitals/I&O/Wt Last Vital Signs Temp 98.4 F 12/21/23 19:47 Pulse 69 12/22/23 06:00 Resp 16 12/22/23 06:00 BP 119/78 12/22/23 06:00 Pulse Ox 95 12/22/23 06:00 O2 Del Method Room Air 12/22/23 06:00 Weight last 48 hrs Weight 109.316 kg Data NPU 12/17/23 16:34 12/17/23 16:34 Micro: Microbiology 12/20/23 19:52 Urine Culture - Final Urine,Clean Catch Microbiology 12/20/23 19:52 Urine,Clean Catch Urine Culture - Final A&P Assessment and plan (1) Acute psychosis: (2) Cluster B personality disorder in adult: (3) Depression, unspecified: (4) Auditory hallucinations: (5) Suicidal ideation: (6) Methamphetamine use disorder, severe: Plan Plan This is a 33 year old white female with a history of trauma and genetic loading for mental health, addiction and lethality issues who presents with recent mental health challenges due to life stressors and having again run out of her medications, open to restarting her medications to target mood and alleged psychosis. 1.? Continued the matter Zoloft 100mg in am and restarted Abilify 10mg daily. Drug screen essentially negative. Increase Abilify to 15 mg p.o. daily. 2.? Encourage individual, group and milieu therapy 3.? Continue q-15 minute check for safety 4.? Recommend sober living treatment at the highest level of care to which the patient is willing to commit. 5. Will attempt to gather collateral information. Involuntary Hold Information 2 96 Hour Hold: 96 Hour Involuntary Admission: Yes 96 Hour Hold Ending Date: 12/23/23 96 Hour Hold Ending Time: 16:38 Attestations NPU 2 Medical Necessity Statement*: Inpatient hospitalization is medically necessary and the clinically appropriate intervention at this time. We will monitor medications and make changes as indicated. The patient's likely length of stay is 1-3 days. Coding Level of Care Code Acute Code for [facility] Fwd Diagnoses Acute psychosis F23 Cluster B personality disorder in adult F60.9 Depression, unspecified F32.A Auditory hallucinations R44.0 Suicidal ideation R45.851 Methamphetamine use disorder, severe F15.20
[2023-12-22] MEDS: OLANZapine 5 mg ODT PO (12:01)
--- NOTE | 2023-12-22 12:02 | PC.NURSE ---
Patient came to window with report of anxiety 03/09. Patient appears to be close to tears. Administered zyprexa 5mg ODT
[2023-12-22] MEDS: haloperidol 5 mg Tablet PO (13:17)
[2023-12-22] MEDS: acetaminophen 325 mg Tablet 650 MG PO (13:17)
[2023-12-22] MEDS: nicotine 21 mg Patch 1 PATCH TRANSDERMA (13:19)
[2023-12-22 14:00] VITALS: BP 113/72; PULSE 92; RESP 15; TEMP 36.6; O2SAT 95
--- NOTE | 2023-12-22 14:06 | PC.NURSE ---
Patient admitted to this nurse that she constantly experiences auditory hallucinations. The voices tell her that she is nasty, ugly, and worthless. Patient reports occasional visual hallucinations. Patient says that the onset of the hallucinations was a few years ago, during which she was using meth regularly.
[2023-12-22] MEDS: ARIPiprazole 10 mg Tablet 5 MG PO (15:24)
[2023-12-22 20:11] VITALS: BP 101/66; PULSE 76; RESP 16; TEMP 36.9; O2SAT 96
[2023-12-23 06:00] VITALS: BP 111/66; PULSE 69; RESP 15; O2SAT 95
[2023-12-23] MEDS: ibuprofen 600 mg Tablet PO ×2 (08:16→14:45)
[2023-12-23] MEDS: ARIPiprazole 10 mg Tablet 15 MG PO (08:16)
[2023-12-23] MEDS: sertraline 100 mg Tablet PO (08:16)
--- NOTE | 2023-12-23 09:02 | PC.NURSE ---
IN BED RESTING AROUSES TO VOICE. DENIES SI/HI AND AVH AT THIS TIME. RATES ANXIETY AND DEPRESSION 0/10. RATES PAIN IN BACK 7/10 IBUPROFEN WAS GIVEN ORDERED. PT CONTINUES TO HAVE A FLAT AFFECT AND GUARDED WITH STAFF. PT STILL ISOLATES AND IS WITHDRAWN TO ROOM. ALL QUESTIONS ANSWERED AND SUPPORT VOICED.
[2023-12-23] MEDS: nicotine 21 mg Patch 1 PATCH TRANSDERMA (11:37)
[2023-12-23] MEDS: acetaminophen 325 mg Tablet 650 MG PO (11:38)
[2023-12-23] MEDS: hyDROXYzine 25 mg Capsule 50 MG PO (12:44)
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
[2023-12-23 13:59] VITALS: BP 111/66; PULSE 69; RESP 15; O2SAT 95
== END 2023-12-23 15:27 | disposition home or self-care (01) | DRG 885 ==
LOC: ER 17:46 → NP 17:48
PROVIDERS: Admitting Provider Psychiatry & Neurology Psychiatry; Emergency Provider Emergency Medicine; Visit Provider Psychiatry & Neurology Psychiatry
DX: F23 Brief psychotic disorder (principal); R45.851 Suicidal ideations; F15.20 Other stimulant dependence, uncomplicated; Z59.00 Homelessness unspecified; F32.A Depression, unspecified; F60.89 Other specific personality disorders; Z62.810 Personal history of physical and sexual abuse in childhood; Z91.148 Patient's other noncompliance with medication regimen for other reason; Z72.0 Tobacco use
CPT/HCPCS: 36415; 80053; 80306; 80307; 81001; 83690; 84703; 85025; 87086; 96372; 97150; 97165; 99285; J2060